=== PATIENT | male | born 1985 | race Caucasian/White ===

== ENCOUNTER 2016-10-26 16:44 | Outpatient (RCR) | payer OTHER ==
[~2016-10-26 16:44] MED LIST: HYDR1TAB75 PO; LACT1CAP62 PO; NAPR375T2 PO; ONDA8TAB13 PO; ONDAN4ODT PO
[2016-10-26 17:03] LABS: BASOPHILS # (AUTO) 0.1 10^3/uL (0.0-0.1); BASOPHILS % (AUTO) 1 % (0-10); EOSINOPHILS # (AUTO) 0.2 10^3/uL (0.0-0.3); EOSINOPHILS % (AUTO) 2 % (0-10); LYMPHOCYTES # (AUTO) 2.2 X 10^3 (1.0-4.0); LYMPHOCYTES % (AUTO) 25 % (12-44); MEAN CORPUSCULAR HEMOGLOBIN 30 PG (25-34); MEAN CORPUSCULAR HGB CONC 36 G/DL (32-36); MEAN CORPUSCULAR VOLUME 83 FL (80-99); MONOCYTES # (AUTO) 0.8 X 10^3 (0.0-1.0); MONOCYTES % (AUTO) 9 % (0-12); NEUTROPHILS # (AUTO) 5.6 X 10^3 (1.8-7.8); NEUTROPHILS % (AUTO) 63 % (42-75); PLATELET COUNT 289 10^3/uL (130-400); RED BLOOD COUNT 5.25 10^6/uL (4.35-5.85); RED CELL DISTRIBUTION WIDTH 12.6 % (10.0-14.5)
== END 2017-01-24 | disposition home or self-care (01) ==
LOC: LAB 16:44
PROVIDERS: ATTEND Nurse Practitioner Family
DX: E29.1 Testicular hypofunction (principal)
CPT/HCPCS: 36415; 84403; 85025

== ENCOUNTER 2016-12-24 16:00 | Outpatient (CLI) | payer OTHER | END 2016-12-24 16:16 | disposition home or self-care (01) | LOC: SLEEP 16:00 | PROVIDERS: ATTEND Otolaryngology Otolaryngology/Facial Plastic Surgery | DX: G47.33 Obstructive sleep apnea (adult) (pediatric) (principal) ==

== ENCOUNTER → 2017-01-06 | Outpatient (CLI) | payer OTHER ==
[~2017-01-06] MED LIST changes: +CETI10TA20 PO; +CHON250C PO; +L.AC1CAP6 PO; +MULT-35 PO; +TEST200V22 IM
--- NOTE | 2017-01-06 17:07 | Diagnostic Imaging Report ---
CLINICAL INDICATION: Patient with chronic sinusitis. Patient has history of nasal fracture. EXAM: Axial maxillofacial CT scan performed without IV contrast with coronal reformations. COMPARISON: None. FINDINGS: PARANASAL SINUSES: FRONTAL: There is mild to moderate mucosal thickening involving the right frontal sinus/frontal recess region. ETHMOID: There is moderate mucosal thickening. MAXILLARY: There is mild peripheral mucosal thickening involving both maxillary sinuses. The bilateral infundibulum regions are obstructed. The bilateral ostiomeatal unit regions are obstructed. SPHENOID: There is mild mucosal thickening seen anteriorly. OTHER PARANASAL SINUS FINDINGS: There are large amounts of mucosal thickening involving the right nasal cavity and mild mucosal thickening involving the left nasal cavity. NASAL SEPTUM: There is roughly 3 mm of rightward nasal septal deviation. VISUALIZED TEMPORAL BONE STRUCTURES: Unremarkable. BONY STRUCTURES: Unremarkable. EXTRACRANIAL SOFT TISSUE/ ORBITS: Unremarkable. IMPRESSION: 1: Mild to moderate diffuse paranasal sinusitis. The bilateral ostiomeatal unit regions and infundibulum are obstructed. 2: There is mild rightward nasal septal deviation. Dictated by: Dictated on workstation # [id number]
== END ==
LOC: RAD 16:35
PROVIDERS: ATTEND Otolaryngology Otolaryngology/Facial Plastic Surgery
DX: J32.8 Other chronic sinusitis (principal); J34.2 Deviated nasal septum
CPT/HCPCS: 70486

== ENCOUNTER → 2017-02-03 | Outpatient (CLI) | payer OTHER ==
[~2017-02-03] MED LIST changes: -CETI10TA20 PO; -CHON250C PO; -L.AC1CAP6 PO; -MULT-35 PO; -TEST200V22 IM
[2017-02-05 07:02] LABS: PROLACTIN 4.3 ng/mL (2.1-17.7)
== END ==
LOC: LAB 16:20
PROVIDERS: ATTEND Internal Medicine
DX: E03.9 Hypothyroidism, unspecified; E29.1 Testicular hypofunction
CPT/HCPCS: 36415; 83520; 84146; 84443

== ENCOUNTER 2017-03-04 05:33 | Outpatient (CLI) | payer OTHER ==
[~2017-03-04] VITALS: Ht 177.8 cm; Wt 86.2 kg
[2017-03-04] MEDS ORDERED: L.AC1CAP6 PO (12:16)
[2017-03-04] MEDS ORDERED: TEST200V22 IM (12:16)
[2017-03-04] MEDS ORDERED: CHON250C PO (12:16)
[2017-03-04] MEDS ORDERED: MULT-35 PO (12:16)
[2017-03-04] MEDS ORDERED: CETI10TA20 PO (12:16)
== END 2017-03-04 12:26 ==
LOC: PREOP 05:33
PROVIDERS: ATTEND Otolaryngology Otolaryngology/Facial Plastic Surgery
DX: Z01.818 Encounter for other preprocedural examination (principal); J32.9 Chronic sinusitis, unspecified; J34.2 Deviated nasal septum; J34.3 Hypertrophy of nasal turbinates

== ENCOUNTER → 2017-05-28 | Outpatient (CLI) | payer OTHER ==
[~2017-05-28] MED LIST changes: +CETI10TA20 PO; +CHON250C PO; +L.AC1CAP6 PO; +MULT-35 PO; +TEST200V22 IM
== END ==
LOC: LAB 14:32
PROVIDERS: ATTEND Nurse Practitioner Family
DX: J06.9 Acute upper respiratory infection, unspecified (principal); R53.81 Other malaise
CPT/HCPCS: 87804

== ENCOUNTER 2017-06-06 10:40 | Day surgery (SDC) | payer OTHER ==
[~2017-06-06] VITALS: Ht 177.8 cm; Wt 86.8 kg
--- OUTSIDE RECORDS SUMMARY | 2017-06-06 10:46 | XMS REPORT | Continuity of Care Document ---
Author Author [facility] Organization [facility] Address Unknown Phone Unavailable Allergies Active Description Code Type Severity Reaction Onset Reported/Identified Relationship to Patient Clinical Status Yes azithromycin [id number] Drug Allergy Unknown N/A 03/04/2017 Medications There is no data. Problems Date Dx Coded Attending Type Code Diagnosis Diagnosed By 05/05/2012 Ot 276.51 05/05/2012 Ot 787.01 05/05/2012 Ot 787.91 03/21/2013 EARLENE JOHN CRESPO Ot 717.7 03/21/2013 EARLENE JOHN Myers Ot 727.83 07/26/2014 Ot 729.5 04/02/2015 Ot 719.47 04/02/2015 Ot E000.8 04/02/2015 Ot E849.0 04/02/2015 Ot E917.9 04/02/2015 EARLENE DO, JOHN Myers Ot 719.46 04/02/2015 EARLENE DO, JOHN Myers Ot E000.8 04/02/2015 EARLENE DO, JOHN Myers Ot E849.0 04/02/2015 EARLENE DO, JOHN Myers Ot E888.9 04/02/2015 EARLENE DO, JOHN Myers Ot 722.92 04/02/2015 EARLENE DO, JOHN Myers Ot 722.93 04/02/2015 EARLENE DO, JOHN Myers Ot 727.83 04/02/2015 EARLENE DO, JOHN Myers Ot V72.84 04/02/2015 Ot 729.5 04/02/2015 UBALDO SANTIAGO APRN Ot E25.9 04/02/2015 JAMES LEWIS Ot R11.2 04/02/2015 JAMES LEWIS Ot R19.7 05/17/2015 UBALDO SANTIAGO APRN Ot E25.9 06/19/2015 UBALDO SANTIAGO APRN Ot E25.9 06/21/2015 UBALDO SANTIAGO APRN Ot E25.9 06/27/2015 UBALDO SANTIAGO APRN Ot E25.9 08/11/2015 UBALDO SANTIAGO EVICTION SPECIALIST Ot E25.9 ADRENOGENITAL DISORDER, UNSPECIFIED 09/29/2015 UBALDO SANTIAGO EVICTION SPECIALIST Ot E25.9 ADRENOGENITAL DISORDER, UNSPECIFIED 09/29/2015 UBALDO SANTIAGO EVICTION SPECIALIST Ot E25.9 ADRENOGENITAL DISORDER, UNSPECIFIED 09/29/2015 UBALDO SANTIAGO EVICTION SPECIALIST Ot E25.9 ADRENOGENITAL DISORDER, UNSPECIFIED 09/29/2015 UBALDO SANTIAGO EVICTION SPECIALIST Ot E25.9 ADRENOGENITAL DISORDER, UNSPECIFIED 10/21/2015 GLORIA BRAND EVICTION SPECIALIST Ot 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 HYPOFUNCTION 10/21/2015 GLORIA BRAND EVICTION SPECIALIST Ot I10 ESSENTIAL (PRIMARY) HYPERTENSION 12/19/2015 UBALDO SANTIAGO EVICTION SPECIALIST Ot E25.9 ADRENOGENITAL DISORDER, UNSPECIFIED 12/19/2015 UBALDO SANTIAGO EVICTION SPECIALIST Ot E25.9 ADRENOGENITAL DISORDER, UNSPECIFIED 12/19/2015 GLORIA BRAND EVICTION SPECIALIST Ot 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 HYPOFUNCTION 12/19/2015 GLORIA BRAND EVICTION SPECIALIST Ot I10 ESSENTIAL (PRIMARY) HYPERTENSION 12/20/2015 UBALDO SANTIAGO EVICTION SPECIALIST Ot E25.9 ADRENOGENITAL DISORDER, UNSPECIFIED 12/20/2015 UBALDO SANTIAGO EVICTION SPECIALIST Ot E25.9 ADRENOGENITAL DISORDER, UNSPECIFIED 12/20/2015 GLORIA BRAND EVICTION SPECIALIST Ot 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 HYPOFUNCTION 12/20/2015 GLORIA BRAND EVICTION SPECIALIST Ot I10 ESSENTIAL (PRIMARY) HYPERTENSION 01/07/2016 GLORIA BRAND EVICTION SPECIALIST Ot 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 HYPOFUNCTION 01/07/2016 GLORIA BRAND EVICTION SPECIALIST Ot Z79.899 OTHER LAPPING MACHINE SET UP OPERATOR (CURRENT) DRUG THERAPY 01/07/2016 GLORIA BRAND EVICTION SPECIALIST Ot 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 HYPOFUNCTION 01/07/2016 GLORIA BRAND EVICTION SPECIALIST Ot Z79.899 OTHER SENIOR LIVING (CURRENT) DRUG THERAPY 02/03/2016 UBALDO SANTIAGO EVICTION SPECIALIST Ot E25.9 ADRENOGENITAL DISORDER, UNSPECIFIED 02/03/2016 UBALDO SANTIAGO EVICTION SPECIALIST Ot E25.9 ADRENOGENITAL DISORDER, UNSPECIFIED 02/03/2016 GLORIA BRAND EVICTION SPECIALIST Ot 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 HYPOFUNCTION 02/03/2016 GLORIA BRAND EVICTION SPECIALIST Ot I10 ESSENTIAL (PRIMARY) HYPERTENSION 02/03/2016 GLORIA BRAND EVICTION SPECIALIST Ot 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 HYPOFUNCTION 02/03/2016 GLORIA BRAND EVICTION SPECIALIST Ot Z79.899 OTHER LAPPING MACHINE SET UP OPERATOR (CURRENT) DRUG THERAPY 10/19/2016 UBALDO SANTIAGO EVICTION SPECIALIST Ot E25.9 ADRENOGENITAL DISORDER, UNSPECIFIED 10/19/2016 UBALDO SANTIAGO EVICTION SPECIALIST Ot E25.9 ADRENOGENITAL DISORDER, UNSPECIFIED 10/19/2016 GLORIA BRAND EVICTION SPECIALIST Ot 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 HYPOFUNCTION 10/19/2016 GLORIA BRAND EVICTION SPECIALIST Ot I10 ESSENTIAL (PRIMARY) HYPERTENSION 10/19/2016 GLORIA BRAND EVICTION SPECIALIST Ot 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 HYPOFUNCTION 10/19/2016 GLORIA BRAND EVICTION SPECIALIST Ot Z79.899 OTHER LAPPING MACHINE SET UP OPERATOR (CURRENT) DRUG THERAPY 10/26/2016 UBALDO SANTIAGO EVICTION SPECIALIST Ot E25.9 ADRENOGENITAL DISORDER, UNSPECIFIED 10/26/2016 UBALDO SANTIAGO EVICTION SPECIALIST Ot E25.9 ADRENOGENITAL DISORDER, UNSPECIFIED 10/26/2016 GLORIA BRAND EVICTION SPECIALIST Ot 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 HYPOFUNCTION 10/26/2016 GLORIA BRAND EVICTION SPECIALIST Ot I10 ESSENTIAL (PRIMARY) HYPERTENSION 10/26/2016 GLORIA BRAND EVICTION SPECIALIST Ot 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 HYPOFUNCTION 10/26/2016 GLORIA BRAND EVICTION SPECIALIST Ot Z79.899 OTHER SENIOR LIVING (CURRENT) DRUG THERAPY 10/28/2016 GLORIA BRAND EVICTION SPECIALIST Ot 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 HYPOFUNCTION 12/13/2016 UBALDO SANTIAGO EVICTION SPECIALIST Ot E25.9 ADRENOGENITAL DISORDER, UNSPECIFIED 12/13/2016 UBALDO SANTIAGO EVICTION SPECIALIST Ot E25.9 ADRENOGENITAL DISORDER, UNSPECIFIED 12/13/2016 GLORIA BRAND EVICTION SPECIALIST Ot 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 HYPOFUNCTION 12/13/2016 GLORIA BRAND EVICTION SPECIALIST Ot I10 ESSENTIAL (PRIMARY) HYPERTENSION 12/13/2016 GLORIA BRAND EVICTION SPECIALIST Ot 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 HYPOFUNCTION 12/13/2016 GLORIA BRAND EVICTION SPECIALIST Ot Z79.899 OTHER LAPPING MACHINE SET UP OPERATOR (CURRENT) DRUG THERAPY 12/13/2016 GLORIA BRAND APRN Ot 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 HYPOFUNCTION 12/24/2016 STEPHEN GOODMAN MD Ot G47.33 OBSTRUCTIVE SLEEP APNEA (ADULT) (PEDIATR 01/07/2017 STEPHEN GOODMAN MD Ot J32.8 OTHER CHRONIC SINUSITIS 01/07/2017 STEPHEN GOODMAN MD Ot 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 01/24/2017 GLORIA BRAND EVICTION SPECIALIST Ot 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 HYPOFUNCTION 02/02/2017 STEPHEN GOODMAN MD Ot J32.8 OTHER CHRONIC SINUSITIS 02/02/2017 STEPHEN GOODMAN MD Ot 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 02/04/2017 JAMES UMAÑA MD Ot E03.9 HYPOTHYROIDISM, UNSPECIFIED 02/04/2017 JAMES UMAÑA MD Ot 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 HYPOFUNCTION 03/04/2017 STEPHEN GOODMAN MD Ot J32.9 CHRONIC SINUSITIS, UNSPECIFIED 03/04/2017 STEPHEN GOODMAN MD Ot 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 03/04/2017 STEPHEN GOODMAN MD Ot J34.3 HYPERTROPHY OF NASAL TURBINATES 03/04/2017 STEPHEN GOODMAN MD Ot Z01.818 ENCOUNTER FOR OTHER PREPROCEDURAL EXAMIN 03/04/2017 STEPHEN GOODMAN MD Ot J32.9 CHRONIC SINUSITIS, UNSPECIFIED 03/04/2017 STEPHEN GOODMAN MD Ot 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 03/04/2017 STEPHEN GOODMAN MD Ot J34.3 HYPERTROPHY OF NASAL TURBINATES 03/04/2017 STEPHEN GOODMAN MD Ot Z01.818 ENCOUNTER FOR OTHER PREPROCEDURAL EXAMIN 03/04/2017 UBALDO SANTIAGO EVICTION SPECIALIST Ot E25.9 ADRENOGENITAL DISORDER, UNSPECIFIED 03/04/2017 UBALDO SANTIAGO EVICTION SPECIALIST Ot E25.9 ADRENOGENITAL DISORDER, UNSPECIFIED 03/04/2017 GLORIA BRAND EVICTION SPECIALIST Ot 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 HYPOFUNCTION 03/11/2017 UBALDO SANTIAGO EVICTION SPECIALIST Ot E25.9 ADRENOGENITAL DISORDER, UNSPECIFIED 03/11/2017 UBALDO SANTIAGO EVICTION SPECIALIST Ot E25.9 ADRENOGENITAL DISORDER, UNSPECIFIED 03/11/2017 GLORIA BRAND EVICTION SPECIALIST Ot 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 HYPOFUNCTION 03/11/2017 GLORIA BRAND EVICTION SPECIALIST Ot I10 ESSENTIAL (PRIMARY) HYPERTENSION 03/11/2017 GLORIA BRAND APRN Ot 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 HYPOFUNCTION 03/11/2017 GLORIA BRAND EVICTION SPECIALIST Ot Z79.899 OTHER SENIOR LIVING (CURRENT) DRUG THERAPY 03/11/2017 STEPHEN GOODMAN MD Ot J32.8 OTHER CHRONIC SINUSITIS 03/11/2017 STEPHEN GOODMAN MD Ot 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 03/11/2017 GLORIA BRAND EVICTION SPECIALIST Ot 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 HYPOFUNCTION 03/11/2017 JAMES UMAÑA MD Ot E03.9 HYPOTHYROIDISM, UNSPECIFIED 03/11/2017 JAMES UMAÑA MD Ot 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 HYPOFUNCTION 03/11/2017 STEPHEN GOODMAN MD Ot F41.9 ANXIETY DISORDER, UNSPECIFIED 03/11/2017 STEPHEN GOODMAN MD Ot J32.0 CHRONIC MAXILLARY SINUSITIS 03/11/2017 STEPHEN GOODMAN MD Ot J32.1 CHRONIC FRONTAL SINUSITIS 03/11/2017 STEPHEN GOODMAN MD Ot J32.2 CHRONIC ETHMOIDAL SINUSITIS 03/11/2017 STEPHEN GOODMAN MD Ot 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 03/11/2017 STEPHEN GOODMAN MD Ot J34.3 HYPERTROPHY OF NASAL TURBINATES 03/11/2017 STEPHEN GOODMAN MD Ot K21.9 GASTRO-ESOPHAGEAL REFLUX DISEASE WITHOUT 03/11/2017 STEPHEN GOODMAN MD Ot Z79.899 OTHER SENIOR LIVING (CURRENT) DRUG THERAPY 03/11/2017 STEPHEN GOODMAN MD Ot Z87.891 PERSONAL HISTORY OF NICOTINE DEPENDENCE 03/24/2017 STEPHEN GOODMAN MD Ot F41.9 ANXIETY DISORDER, UNSPECIFIED 03/24/2017 STEPHEN GOODMAN MD Ot J32.0 CHRONIC MAXILLARY SINUSITIS 03/24/2017 STEPHEN GOODMAN MD Ot J32.1 CHRONIC FRONTAL SINUSITIS 03/24/2017 STEPHEN GOODMAN MD Ot J32.2 CHRONIC ETHMOIDAL SINUSITIS 03/24/2017 STEPHEN GOODMAN MD Ot 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 03/24/2017 STEPHEN GOODMAN MD Ot J34.3 HYPERTROPHY OF NASAL TURBINATES 03/24/2017 STEPHEN GOODMAN MD Ot K21.9 GASTRO-ESOPHAGEAL REFLUX DISEASE WITHOUT 03/24/2017 STEPHEN GOODMAN MD Ot Z79.899 OTHER SENIOR LIVING (CURRENT) DRUG THERAPY 03/24/2017 MAXINE CORDOVA STEPHEN Saleem Ot Z87.891 PERSONAL HISTORY OF NICOTINE DEPENDENCE 04/29/2017 UBALDO SANTIAGO APRN Ot E25.9 ADRENOGENITAL DISORDER, UNSPECIFIED 04/29/2017 UBALDO SANTIAGO APRN Ot E25.9 ADRENOGENITAL DISORDER, UNSPECIFIED 04/29/2017 GLORIA BRAND APRN Ot 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 HYPOFUNCTION 04/29/2017 GLORIA BRAND APRN Ot I10 ESSENTIAL (PRIMARY) HYPERTENSION 04/29/2017 GLORIA BRAND APRN Ot 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 HYPOFUNCTION 04/29/2017 GLORIA BRAND APRN Ot Z79.899 OTHER SENIOR LIVING (CURRENT) DRUG THERAPY 04/29/2017 STEPHEN GOODMAN MD Ot J32.8 OTHER CHRONIC SINUSITIS 04/29/2017 STEPHEN GOODMAN MD Ot 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 04/29/2017 GLORIA BRAND APRN Ot 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 HYPOFUNCTION 04/29/2017 JAMES UMAÑA MD Ot E03.9 HYPOTHYROIDISM, UNSPECIFIED 04/29/2017 JAMES UMAÑA MD Ot 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 HYPOFUNCTION 05/31/2017 GLORIA BRAND APRN Ot J06.9 ACUTE UPPER RESPIRATORY INFECTION, UNSPE 05/31/2017 GLORIA BRAND APRN Ot R53.81 OTHER MAL[facility] Procedures There is no data. Results Test Result Range Complete blood count (CBC) with automated white blood cell (WBC) differential - 01/03/16 14:42 Blood leukocytes automated count (number/volume) 7.9 10*3/uL 4.3-11.0 Blood erythrocytes automated count (number/volume) 5.38 10*6/uL 4.35-5.85 Venous blood hemoglobin measurement (mass/volume) 16.4 g/dL 13.3-17.7 Blood hematocrit (volume fraction) 45 % 40-54 Automated erythrocyte mean corpuscular volume 83 [foz_us] 80-99 Automated erythrocyte mean corpuscular hemoglobin (mass per erythrocyte) 31 pg 25-34 Automated erythrocyte mean corpuscular hemoglobin concentration measurement ( mass/volume) 37 g/dL 32-36 Automated erythrocyte distribution width ratio 12.5 % 10.0-14.5 Automated blood platelet count (count/volume) 263 10*3/uL 130-400 Automated blood platelet mean volume measurement 9.9 [foz_us] 7.4-10.4 Automated blood neutrophils/100 leukocytes 69 % 42-75 Automated blood lymphocytes/100 leukocytes 23 % 12-44 Blood monocytes/100 leukocytes 7 % 0-12 Automated blood eosinophils/100 leukocytes 1 % 0-10 Automated blood basophils/100 leukocytes 0 % 0-10 Blood neutrophils automated count (number/volume) 5.5 10*3 1.8-7.8 Blood lymphocytes automated count (number/volume) 1.8 10*3 1.0-4.0 Blood monocytes automated count (number/volume) 0.5 10*3 0.0-1.0 Automated eosinophil count 0.1 10*3/uL 0.0-0.3 Automated blood basophil count (count/volume) 0.0 10*3/uL 0.0-0.1 Serum or plasma testosterone measurement (mass/volume) - 01/03/16 14:42 Testosterone [mass or moles/volume] in serum or plasma 562 % 241-827 Complete blood count (CBC) with automated white blood cell (WBC) differential - 10/26/16 16:56 Blood leukocytes automated count (number/volume) 9.0 10*3/uL 4.3-11.0 Blood erythrocytes automated count (number/volume) 5.25 10*6/uL 4.35-5.85 Venous blood hemoglobin measurement (mass/volume) 15.6 g/dL 13.3-17.7 Blood hematocrit (volume fraction) 43 % 40-54 Automated erythrocyte mean corpuscular volume 83 [foz_us] 80-99 Automated erythrocyte mean corpuscular hemoglobin (mass per erythrocyte) 30 pg 25-34 Automated erythrocyte mean corpuscular hemoglobin concentration measurement ( mass/volume) 36 g/dL 32-36 Automated erythrocyte distribution width ratio 12.6 % 10.0-14.5 Automated blood platelet count (count/volume) 289 10*3/uL 130-400 Automated blood platelet mean volume measurement 10.0 [foz_us] 7.4-10.4 Automated blood neutrophils/100 leukocytes 63 % 42-75 Automated blood lymphocytes/100 leukocytes 25 % 12-44 Blood monocytes/100 leukocytes 9 % 0-12 Automated blood eosinophils/100 leukocytes 2 % 0-10 Automated blood basophils/100 leukocytes 1 % 0-10 Blood neutrophils automated count (number/volume) 5.6 10*3 1.8-7.8 Blood lymphocytes automated count (number/volume) 2.2 10*3 1.0-4.0 Blood monocytes automated count (number/volume) 0.8 10*3 0.0-1.0 Automated eosinophil count 0.2 10*3/uL 0.0-0.3 Automated blood basophil count (count/volume) 0.1 10*3/uL 0.0-0.1 Serum or plasma testosterone measurement (mass/volume) - 10/26/16 16:56 Testosterone [mass or moles/volume] in serum or plasma 235 % 241-827 THYROID STIMULATING HORMONE - 02/03/17 16:40 THYROID STIMULATING HORMONE 1.08 u[iU]/mL 0.35-4.94 Serum or plasma prolactin measurement (mass/volume) - 02/03/17 16:40 Serum or plasma prolactin measurement (mass/volume) 4.3 % 2.1-17.7 TSH RECEPTOR ANTIBODY - 02/03/17 16:40 TSH RECEPTOR AB <0.90 <=1.75 Complete blood count (CBC) with automated white blood cell (WBC) differential - 03/11/17 07:00 Blood leukocytes automated count (number/volume) 11.4 10*3/uL 4.3-11.0 Blood erythrocytes automated count (number/volume) 5.28 10*6/uL 4.35-5.85 Venous blood hemoglobin measurement (mass/volume) 15.9 g/dL 13.3-17.7 Blood hematocrit (volume fraction) 44 % 40-54 Automated erythrocyte mean corpuscular volume 82 [foz_us] 80-99 Automated erythrocyte mean corpuscular hemoglobin (mass per erythrocyte) 30 pg 25-34 Automated erythrocyte mean corpuscular hemoglobin concentration measurement ( mass/volume) 37 g/dL 32-36 Automated erythrocyte distribution width ratio 12.8 % 10.0-14.5 Automated blood platelet count (count/volume) 326 10*3/uL 130-400 Automated blood platelet mean volume measurement 10.1 [foz_us] 7.4-10.4 Automated blood neutrophils/100 leukocytes 69 % 42-75 Automated blood lymphocytes/100 leukocytes 23 % 12-44 Blood monocytes/100 leukocytes 7 % 0-12 Automated blood eosinophils/100 leukocytes 0 % 0-10 Automated blood basophils/100 leukocytes 0 % 0-10 Blood neutrophils automated count (number/volume) 7.8 10*3 1.8-7.8 Blood lymphocytes automated count (number/volume) 2.7 10*3 1.0-4.0 Blood monocytes automated count (number/volume) 0.8 10*3 0.0-1.0 Automated eosinophil count 0.0 10*3/uL 0.0-0.3 Automated blood basophil count (count/volume) 0.0 10*3/uL 0.0-0.1 Whole blood basic metabolic panel - 03/11/17 07:00 Serum or plasma sodium measurement (moles/volume) 139 mmol/L 135-145 Serum or plasma potassium measurement (moles/volume) 3.3 mmol/L 3.6-5.0 Serum or plasma chloride measurement (moles/volume) 105 mmol/L 98-107 Carbon dioxide 24 mmol/L 21-32 Serum or plasma anion gap determination (moles/volume) 10 mmol/L 5-14 Serum or plasma urea nitrogen measurement (mass/volume) 14 mg/dL 7-18 Serum or plasma creatinine measurement (mass/volume) 0.80 mg/dL 0.60-1.30 Serum or plasma urea nitrogen/creatinine mass ratio 18 NRG Serum or plasma creatinine measurement with calculation of estimated glomerular filtration rate > NRG Serum or plasma glucose measurement (mass/volume) 88 mg/dL 70-105 Serum or plasma calcium measurement (mass/volume) 9.0 mg/dL 8.5-10.1 Methicillin resistant Staphylococcus aureus (MRSA) screening culture - 07:00 Methicillin resistant Staphylococcus aureus (MRSA) screening culture NEG NRG Influenza virus A and B antigen detection - 05/28/17 14:44 FLU RESULT NEGATIVE FOR INFLUENZA A AND B ANTIGENS BY IA NRG Encounters ACCT No. Visit Date/Time Discharge Status Pt. Type Provider Facility Loc./Unit Complaint [id number] 05/28/2017 14:32:00 05/28/2017 23:59:59 CLS Outpatient GLORIA BRAND APRN [facility] LAB R53.8, J06.9 [id number] 03/11/2017 06:33:00 03/11/2017 13:40:00 DIS Outpatient MAXINE CORDOVASTEPHEN [facility] SDC CHRONIC SINUSITIS, DEVIATED SEPTUM, TURBINATED HYP [id number] 03/04/2017 05:33:00 03/04/2017 12:26:00 DIS Outpatient STEPHEN GOODMAN MD [facility] PREOP CHRONIC SINUSITIS [id number] 02/03/2017 16:20:00 02/03/2017 23:59:59 CLS Outpatient JAMES UMAÑA MD [facility] LAB E03.9 E29.1 [id number] 01/25/2017 00:21:00 01/25/2017 23:59:59 CLS Preadmit GLORIA BRAND APRN [facility] LAB E28.1 E29.1 [id number] 10/26/2016 16:44:00 01/24/2017 00:01:00 DIS Outpatient GLORIA BRAND APRN [facility] LAB E28.1 E29.1 [id number] 01/06/2017 16:35:00 01/06/2017 23:59:59 CLS Outpatient STEPHEN GOODMAN MD [facility] RAD CHRONIS SINUSITIS [id number] 12/24/2016 16:00:00 12/24/2016 16:16:00 DIS Outpatient STEPHEN GOODMAN MD [facility] SLEEP OBSTRUCTIVE SLEEP APNEA [id number] 01/03/2016 14:29:00 01/03/2016 23:59:59 CLS Outpatient GLORIA BRAND APRN [facility] LAB SENIOR LIVING DRUG THERAPY,TESTICULAR HYPOFUNCTION [id number] 10/19/2015 10:17:00 10/19/2015 23:59:59 CLS Outpatient GLORIA BRAND APRN [facility] LAB ROUTINE HTN E29.1 [id number] 08/12/2015 00:10:00 08/12/2015 23:59:59 CLS Preadmit UBALDO SANTIAGO APRN [facility] LAB ADRENOGENITAL DISORDER [id number] 07/04/2015 12:07:00 08/11/2015 00:01:00 DIS Outpatient UBALDO SANTIAGO APRN [facility] LAB ADRENOGENITAL DISORDER [id number] 07/15/2015 17:24:00 07/15/2015 23:59:59 CLS Outpatient REGAN DRAKE [facility] QUICK [id number] 06/28/2015 00:08:00 06/28/2015 23:59:59 CLS Preadmit UBALDO SANTIAGO APRN [facility] LAB ADRENOGENITAL DISORDER [id number] 05/02/2015 14:13:00 06/27/2015 00:01:00 DIS Outpatient UBALDO SANTIAGO EVICTION SPECIALIST [facility] LAB [id number] 04/02/2015 12:10:00 04/02/2015 15:26:00 DIS Emergency JAMES LEWIS [facility] ER [id number] 03/21/2013 11:05:00 03/21/2013 16:55:00 DIS Outpatient EARLENE CRESPO JOHN Myers [facility] SDC [id number] 03/14/2013 09:47:00 03/14/2013 23:59:59 CLS Outpatient EARLENE DO, JOHN Myers [facility] PREOP [id number] 01/10/2013 14:03:00 01/10/2013 23:59:59 CLS Outpatient EARLENE DO, JOHN Myers [facility] RAD [id number] 12/27/2012 14:02:00 12/27/2012 23:59:59 CLS Outpatient EARLENE DO, JOHN Myers [facility] RAD [id number] 07/06/2014 16:52:00 Document Registration [id number] 05/05/2012 13:47:00 Document Registration [id number] 04/14/2012 13:37:00 Document Registration
--- OUTSIDE RECORDS SUMMARY | 2017-06-06 10:46 | XMS REPORT | CCD ---
Author Author Xiomara Pacheco MD, [facility] Address [facility] [address] [place] [address] Phone Care Team Providers Care Chip Silo Tender Name Role Phone PP Unavailable CCM Unavailable Summary Purpose Interface Exchange Insurance Providers Payer name Policy type / Coverage type Covered libertarian ID Effective Begin Date Effective End Date Blue Cross [facility] Blue Cross/[facility] [id number] Unknown Unknown Family history Daughter Diagnosis Age At Onset Asthma Unknown Brother Diagnosis Age At Onset Hypertension Unknown Father Diagnosis Age At Onset Hypertension Unknown Social History Social History Element Codes Description Effective Dates Marital status Unknown osmar 08/22/2015 Number of children Unknown 1 08/22/2015 Employment Unknown 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 Quit less than 5 years ago 08/22/[address]: 985576329 Never drinks alcohol 08/22/2015 Allergies, Adverse Reactions, Alerts Allergies, Adverse Reactions, Alerts data not found Past Medical History Illness Codes Condition Status Onset Date Resolved Date Cough ICD-9: 786.2 ICD-10: R05 Active 01/05/2017 Unknown Gastro-esophageal reflux disease without esophagitis ICD-9: 530.81 ICD-10: K21.9 Active 01/05/2017 Unknown Other acute sinusitis ICD-9: 461.8 ICD-10: J01.80 Active 10/13/2015 Unknown Other allergic rhinitis ICD-9: 477.8 ICD-10: J30.89 Active 10/13/2015 Unknown 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 Active 08/21/2015 Unknown Acute laryngopharyngitis ICD-9: 465.0 ICD-10: J06.0 Active 07/16/2016 Unknown Other malaise ICD-9: 780.79 ICD-10: R53.81 Active 07/16/2016 Unknown Dizziness and giddiness ICD-9: 780.4 ICD-10: R42 Active 10/13/2015 Unknown Encounter for general adult medical examination without abnormal findings ICD-9: V70.0 ICD-10: Z00.00 Active 08/21/2015 Unknown Problems Condition Codes Effective Dates Condition Status Cough ICD-9: 786.2 ICD-10: R05 01/05/2017 Active Gastro-esophageal reflux disease without esophagitis ICD-9: 530.81 ICD-10: K21.9 01/05/2017 Active Other acute sinusitis ICD-9: 461.8 ICD-10: J01.80 10/13/2015 Active Other allergic rhinitis ICD-9: 477.8 ICD-10: J30.89 10/13/2015 Active 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 08/21/2015 Active Acute laryngopharyngitis ICD-9: 465.0 ICD-10: J06.0 07/16/2016 Active Other malaise ICD-9: 780.79 ICD-10: R53.81 07/16/2016 Active Dizziness and giddiness ICD-9: 780.4 ICD-10: R42 10/13/2015 Active Encounter for general adult medical examination without abnormal findings ICD-9: V70.0 ICD-10: Z00.00 08/21/2015 Active Medications Medication Codes Instructions Start Date Stop Date Status Fill Instructions amoxicillin 500 mg capsule RxNorm: 484607 1 Capsule(s) PO TID 05/28/2017 06/03/2017 Active testosterone cypionate 200 mg/mL intramuscular oil RxNorm: 201276 1 Milliliter(s) IM every 14 days 04/13/2017 10/08/2017 Active prednisone 10 mg tablet RxNorm: 655298 Tablet(s) PO UD 2016 No Stop Date Active 6,5,4,3,2,1 omeprazole 20 mg capsule,delayed release RxNorm: 653719 1 Capsule(s) PO daily 01/05/2017 01/18/2017 Inactive Tessalon Perles 100 mg capsule RxNorm: 672091 1-2 Capsule(s) PO TID as needed 01/05/2017 01/09/2017 Inactive levothyroxine 25 mcg tablet RxNorm: 525422 1 Tablet(s) PO daily 12/25/2016 01/02/2017 Inactive levothyroxine 25 mcg tablet RxNorm: 521509 1 Tablet(s) PO daily 12/25/2016 12/24/2016 Inactive Zofran 4 mg tablet RxNorm: 284908 1 Tablet(s) PO TID as needed 12/24/2016 12/28/2016 Inactive Kenalog 40 mg/mL suspension for injection RxNorm: 3978097 1 Milliliter(s) Inj 12/22/2016 12/22/2016 Inactive ceftriaxone 500 mg solution for injection RxNorm: 3351519 1 Milliliter(s) Inj 12/22/2016 12/22/2016 Inactive Augmentin 875 mg-125 mg tablet RxNorm: 971452 1 Tablet(s) PO BID started by urgent care 12/20/2016 12/29/2016 Inactive prednisone 20 mg tablet RxNorm: 039824 1 Tablet(s) PO daily started by urgent care 12/20/2016 12/24/2016 Inactive testosterone cypionate 200 mg/mL intramuscular oil RxNorm: 622233 1 Milliliter(s) IM every 14 days 09/01/2016 08/21/2017 Active Zofran 4 mg tablet RxNorm: 043606 1 Tablet(s) PO TID as needed 07/16/2016 07/20/2016 Inactive amoxicillin 875 mg tablet RxNorm: 315462 1 Tablet(s) PO BID 07/25/2016 Inactive testosterone cypionate 200 mg/mL intramuscular oil RxNorm: 029581 1 Milliliter(s) IM every 14 days 10/29/2015 10/21/2016 Inactive testosterone cypionate 200 mg/mL intramuscular oil RxNorm: 821640 1 Milliliter(s) IM every 14 days 10/24/2015 10/28/2015 Inactive no need to send needles prednisone 20 mg tablet RxNorm: 885099 2 Tablet(s) PO daily 10/18/2015 Inactive amoxicillin 500 mg capsule RxNorm: 249636 1 Capsule(s) PO TID 10/14/2015 10/23/2015 Inactive Kenalog 40 mg/mL suspension for injection RxNorm: 2650523 1 Milliliter(s) Inj 10/14/2015 10/14/2015 Inactive naproxen 250 mg tablet RxNorm: 621816 1 Tablet(s) PO daily No Start Date Active Multivitamin & Mineral Formula tablet RxNorm: 1 Tablet(s) PO daily No Start Date Active testosterone cypionate 200 mg/mL intramuscular oil RxNorm: 693372 Milliliter(s) IM No Start Date 10/23/2015 Inactive Medication Administered Medication Codes Instructions Start Date Status Kenalog 40 mg/mL suspension for injection RxNorm: 7049882 1Milliliter 12/22/2016 No longer Active ceftriaxone 500 mg solution for injection RxNorm: 7492961 1Milliliter 12/22/2016 No longer Active Kenalog 40 mg/mL suspension for injection RxNorm: 9615475 1Milliliter 10/14/2015 No longer Active Immunizations No Immunization data Assessments Condition Codes Effective Dates Gastro-esophageal reflux disease without esophagitis ICD-10 : K21.9 ICD-9: 530.81 01/05/2017 Other allergic rhinitis ICD-10: J30.89 ICD-9: 477.8 01/05/2017 Cough ICD-10: R05 ICD-9: 786.2 01/05/2017 Other acute recurrent sinusitis ICD-10: J01.81 ICD-9: 461.9 01/05/2017 Other acute sinusitis ICD-10: J01.80 ICD-9: 461.8 12/22/2016 Testicular hypofunction ICD-10: E29.1 ICD-9: 257.2 12/22/2016 Other malaise ICD-10: R53.81 ICD-9: 780.79 07/16/2016 Acute laryngopharyngitis ICD-10: J06.0 ICD-9: 465.0 07/16/2016 Dizziness and giddiness ICD-10: R42 ICD-9: 780.4 10/14/2015 Encounter for general adult medical examination without abnormal findings ICD-10: Z00.00 ICD-9: V70.0 08/22/2015 Reason For Visit Reason For Visit Effective Dates Notes sinus congestion 01/05/2017 sinus congestion 12/22/2016 sinus congestion 07/16/2016 sinus congestion 10/14/2015 well man exam (18-39 years) 08/22/2015 Results Observation Observation Code Item Item Code Result Date Cbc With Differential Ord2 WBC 12.78 K/ul 12/22/2016 Cbc With Differential Ord2 RBC 5.35 M/ul 12/22/2016 Cbc With Differential Ord2 HGB 16.2 g/dl 12/22/2016 Cbc With Differential Ord2 HCT 45.4 % 12/22/2016 Cbc With Differential Ord2 Neut% 75.3 % 12/22/2016 Cbc With Differential Ord2 MCV 84.9 fl 12/22/2016 Cbc With Differential Ord2 Lymph% 16.4 % 12/22/2016 Cbc With Differential Ord2 MCH 30.3 pg 12/22/2016 Cbc With Differential Ord2 [place]% 7.6 % 12/22/2016 Cbc With Differential Ord2 MCHC 35.7 pg 12/22/2016 Cbc With Differential Ord2 Eos% 0.5 % 12/22/2016 Cbc With Differential Ord2 PLT 313 K/ul 12/22/2016 Cbc With Differential Ord2 Baso% 0.2 % 12/22/2016 Cbc With Differential Ord2 RDW 13.2 % 12/22/2016 Cbc With Differential Ord2 Neut ABS# 9.62 K/ul 12/22/2016 Cbc With Differential Ord2 Lymph ABS# 2.09 K/ul 12/22/2016 Cbc With Differential Ord2 [place] ABS# 1.0 K/ul 12/22/2016 Cbc With Differential Ord2 Eos ABS# 0.1 K/ul 12/22/2016 Cbc With Differential Ord2 Baso ABS# 0.0 K/ul 12/22/2016 Free T4 Urq416 FREE T4 0.76 ng/dL 12/22/2016 Tsh Ord6 hTSH II 5.86 uIU/mL 12/22/2016 Comp Metabolic Xpf280 NA 142 mEq/L 12/22/2016 Comp Metabolic Lep892 K 4.1 mEq/L 12/22/2016 Comp Metabolic Yda749 CL 103 mEq/L 12/22/2016 Comp Metabolic Xvn573 CO2 27.0 mEq/L 12/22/2016 Comp Metabolic Xhe569 ANION GAP 16 12/22/2016 Comp Metabolic Ewa257 GLUCOSE 82 mg/dL 12/22/2016 Comp Metabolic Cfw962 Creat 0.8 mg/dL 12/22/2016 Comp Metabolic Oqi417 eGFR 117 ml/min/1.73m2 12/22/2016 Comp Metabolic Ixc209 BUN 16 mg/dL 12/22/2016 Comp Metabolic Yow062 B/C Ratio 19.8 Ratio 12/22/2016 Comp Metabolic Vge951 CALCIUM 9.2 mg/dL 12/22/2016 Comp Metabolic Xkz093 ALK PHOS 64 U/L 12/22/2016 Comp Metabolic Kct832 AST(SGOT) 13 U/L 12/22/2016 Comp Metabolic Ocs397 ALT(SGPT) 18 U/L 12/22/2016 Comp Metabolic Wgh082 BILI T 0.3 mg/dL 12/22/2016 Comp Metabolic Zco044 ALBUMIN 4.4 g/dL 12/22/2016 Comp Metabolic Vjc447 TPRO 7.1 g/dL 12/22/2016 Comp Metabolic Kyd214 GLOB 2.7 g/dL 12/22/2016 Comp Metabolic Usp772 A/G Ratio 1.6 Ratio 12/22/2016 Comp Metabolic Yby337 Osmo 283 mOsmo 12/22/2016 Lipid Ord30 CHOL 171 mg/dL 12/22/2016 Lipid Ord30 HDL 38.0 mg/dl 12/22/2016 Lipid Ord30 TRIG 141 mg/dL 12/22/2016 Lipid Ord30 LDL 105 mg/dL 12/22/2016 Lipid Ord30 C/HDL 4.5 Ratio 12/22/2016 Testosterone Cxi114 Testo 258.7 ng/dL 12/22/2016 C RAP A SC 8103333 Strep A Negative 12/22/2016 C A/B FLU 8484830 Influenza A Scr Negative 07/17/2016 C A/B FLU 3290878 Influenza B Scr Negative 07/17/2016 Review of Systems System Result Effective Dates Constitutional recent illness 01/05/2017 Constitutional No chills 01/05/2017 Constitutional No diaphoresis 01/05/2017 Constitutional fever 01/05/2017 Constitutional malaise 01/05/2017 Eyes No eye erythema 01/05/2017 Ears/Nose/Throat/Neck nasal allergies 08/2016 Ears/Nose/Throat/Neck nasal discharge 08/2016 Ears/Nose/Throat/Neck postnasal drip 08/2016 Ears/Nose/Throat/Neck sinus congestion Cardiovascular No chest pain/pressure 08/2016 Cardiovascular No dyspnea 01/05/2017 Respiratory chest congestion 01/05/2017 Respiratory cough 01/05/2017 Respiratory No dyspnea 01/05/2017 Gastrointestinal No abdominal pain 2016 Gastrointestinal No constipation 2016 Gastrointestinal No diarrhea 01/05/2017 Gastrointestinal No nausea 01/05/2017 Gastrointestinal No vomiting 01/05/2017 Dermatologic No rash 01/05/2017 Neurologic No alteration of consciousness 01/05/2017 Neurologic No mental status change 2016 Constitutional recent illness 12/22/2016 Constitutional chills 12/22/2016 Constitutional No diaphoresis 12/22/2016 Constitutional fever 12/22/2016 Eyes No eye erythema 12/22/2016 Ears/Nose/Throat/Neck nasal allergies Ears/Nose/Throat/Neck nasal discharge Ears/Nose/Throat/Neck postnasal drip Ears/Nose/Throat/Neck sinus congestion Ears/Nose/Throat/Neck sore throat 2016 Cardiovascular No chest pain/pressure Cardiovascular No dyspnea 12/22/2016 Respiratory No chest congestion 2016 Respiratory cough 12/22/2016 Respiratory No dyspnea 12/22/2016 Gastrointestinal No abdominal pain 2016 Gastrointestinal No constipation 2016 Gastrointestinal No diarrhea 12/22/2016 Gastrointestinal No nausea 12/22/2016 Gastrointestinal No vomiting 12/22/2016 Dermatologic No rash 12/22/2016 Neurologic No alteration of consciousness 12/22/2016 Neurologic No mental status change 2016 Constitutional malaise 12/22/2016 Constitutional recent illness 07/16/2016 Constitutional chills 07/16/2016 Constitutional No diaphoresis 07/16/2016 Constitutional fever 07/16/2016 Eyes No eye erythema 07/16/2016 Ears/Nose/Throat/Neck nasal allergies Ears/Nose/Throat/Neck nasal discharge Ears/Nose/Throat/Neck postnasal drip Ears/Nose/Throat/Neck No sinus congestion 07/16/2016 Ears/Nose/Throat/Neck sore throat 2016 Cardiovascular No chest pain/pressure Cardiovascular No dyspnea 07/16/2016 Respiratory cough 07/16/2016 Respiratory No dyspnea 07/16/2016 Gastrointestinal No constipation 2016 Gastrointestinal No diarrhea 07/16/2016 Gastrointestinal No nausea 07/16/2016 Gastrointestinal No vomiting 07/16/2016 Dermatologic No rash 07/16/2016 Neurologic No alteration of consciousness 07/16/2016 Neurologic No mental status change 2016 Ears/Nose/Throat/Neck No otalgia 2016 Constitutional No chills 10/14/2015 Constitutional No diaphoresis 10/14/2015 Constitutional No fatigue 10/14/2015 Constitutional No insomnia 10/14/2015 Eyes No eye erythema 10/14/2015 Ears/Nose/Throat/Neck nasal allergies Ears/Nose/Throat/Neck nasal discharge Ears/Nose/Throat/Neck otalgia 10/14/2015 Ears/Nose/Throat/Neck sinus congestion Cardiovascular No chest pain/pressure Cardiovascular No dyspnea 10/14/2015 Respiratory No chest congestion 2015 Respiratory cough 10/14/2015 Gastrointestinal No abdominal pain 2015 Gastrointestinal No constipation 2015 Gastrointestinal No diarrhea 10/14/2015 Gastrointestinal No nausea 10/14/2015 Gastrointestinal No vomiting 10/14/2015 Musculoskeletal No joint complaint 2015 Dermatologic No rash 10/14/2015 Neurologic No alteration of consciousness 10/14/2015 Neurologic No mental status change 2015 Ears/Nose/Throat/Neck postnasal drip Neurologic dizziness 10/14/2015 Constitutional No night sweats 2015 Constitutional No chills 08/22/2015 Constitutional No diaphoresis 08/22/2015 Constitutional No fatigue 08/22/2015 Constitutional No fever 08/22/2015 Constitutional No insomnia 08/22/2015 Eyes No eye erythema 08/22/2015 Ears/Nose/Throat/Neck No nasal allergies 08/22/2015 Ears/Nose/Throat/Neck No nasal discharge 08/22/2015 Ears/Nose/Throat/Neck No otalgia 2015 Ears/Nose/Throat/Neck No sinus congestion 08/22/2015 Cardiovascular No chest pain/pressure Cardiovascular No dyspnea 08/22/2015 Respiratory No productive sputum 2015 Respiratory No chest congestion 2015 Respiratory No cough 08/22/2015 Gastrointestinal No abdominal pain 2015 Gastrointestinal No constipation 2015 Gastrointestinal No diarrhea 08/22/2015 Gastrointestinal No vomiting 08/22/2015 Gastrointestinal No nausea 08/22/2015 Genitourinary/Nephrology No dysuria 08/21 Musculoskeletal No joint complaint 2015 Dermatologic No rash 08/22/2015 Neurologic No alteration of consciousness 08/22/2015 Neurologic No mental status change 2015 Physical Exam Exam Name System Name Item Name Status Result Effective Dates Notes Full Exam - ENT Constitutional general appearance Overall: well nourished 01/05/2017 None Full Exam - ENT Constitutional general appearance Overall: well developed 01/05/2017 None Full Exam - ENT Constitutional general appearance Overall: in no acute distress 01/05/2017 None Full Exam - ENT Ears/Nose/Throat otoscopic exam Overall: external auditory canals normal 01/05/2017 None Full Exam - ENT Ears/Nose/Throat otoscopic exam Left tympanic membrane: air -fluid level 01/05/2017 None Full Exam - ENT Ears/Nose/Throat otoscopic exam Right tympanic membrane: air-fluid level 01/05/2017 None Full Exam - ENT Ears/Nose/Throat nasal mucosa, septum, turbinates Drainage: clear 01/05/2017 None Full Exam - ENT Ears/Nose/Throat nasal mucosa, septum, turbinates Drainage: yellow 01/05/2017 None Full Exam - ENT Ears/Nose/Throat lips/ teeth/gingiva Overall: benign lips 01/05/2017 None Full Exam - ENT Ears/Nose/Throat oropharynx Posterior Pharynx: clear post nasal drainage 01/05/2017 None Full Exam - ENT Face and Head palpation Left maxillary sinus: tender 01/05/2017 None Full Exam - ENT Face and Head palpation Right maxillary sinus: tender 01/05/2017 None Full Exam - ENT Respiratory inspection Overall: no retractions 01/05/2017 None Full Exam - ENT Respiratory inspection Overall: normal rate 08/2016 None Full Exam - ENT Respiratory auscultation Diffuse: diminished None Full Exam - ENT Cardiovascular auscultation of heart Overall: regular rate 01/05/2017 None Full Exam - ENT Cardiovascular auscultation of heart Overall: normal heart sounds 01/05/2017 None Full Exam - ENT Lymphatic palpation of lymph nodes Overall: anterior cervical chain benign 01/05/2017 None Full Exam - ENT Lymphatic palpation of lymph nodes Overall: posterior cervical chain benign 01/05/2017 None Full Exam - ENT Neurologic mood and affect Overall: normal mood 01/05/2017 None Full Exam - ENT Neurologic mood and affect Overall: normal affect 01/05/2017 None Full Exam - ENT Neurologic orientation Overall: oriented to person, place and time 01/05/2017 None Full Exam - ENT Respiratory auscultation Right lower lung field: expiratory wheezes 01/05/2017 faint Full Exam - ENT Constitutional general appearance Overall: well nourished 12/22/2016 None Full Exam - ENT Constitutional general appearance Overall: well developed 12/22/2016 None Full Exam - ENT Constitutional general appearance Overall: in no acute distress 12/22/2016 None Full Exam - ENT Ears/Nose/Throat otoscopic exam Overall: external auditory canals normal 12/22/2016 None Full Exam - ENT Ears/Nose/Throat otoscopic exam Left tympanic membrane: air -fluid level 12/22/2016 None Full Exam - ENT Ears/Nose/Throat otoscopic exam Right tympanic membrane: air-fluid level 12/22/2016 None Full Exam - ENT Ears/Nose/Throat nasal mucosa, septum, turbinates Drainage: clear 12/22/2016 None Full Exam - ENT Ears/Nose/Throat nasal mucosa, septum, turbinates Drainage: yellow 12/22/2016 None Full Exam - ENT Ears/Nose/Throat lips/ teeth/gingiva Overall: benign lips 12/22/2016 None Full Exam - ENT Ears/Nose/Throat oropharynx Posterior Pharynx: clear post nasal drainage 12/22/2016 None Full Exam - ENT Face and Head palpation Left maxillary sinus: tender 12/22/2016 None Full Exam - ENT Face and Head palpation Right maxillary sinus: tender 12/22/2016 None Full Exam - ENT Respiratory inspection Overall: no retractions 12/22/2016 None Full Exam - ENT Respiratory inspection Overall: normal rate None Full Exam - ENT Respiratory auscultation Overall: breath sounds clear bilaterally 12/22/2016 None Full Exam - ENT Cardiovascular auscultation of heart Overall: regular rate 12/22/2016 None Full Exam - ENT Cardiovascular auscultation of heart Overall: normal heart sounds 12/22/2016 None Full Exam - ENT Lymphatic palpation of lymph nodes Overall: anterior cervical chain benign 12/22/2016 None Full Exam - ENT Lymphatic palpation of lymph nodes Overall: posterior cervical chain benign 12/22/2016 None Full Exam - ENT Neurologic mood and affect Overall: normal mood 12/22/2016 None Full Exam - ENT Neurologic mood and affect Overall: normal affect 12/22/2016 None Full Exam - ENT Neurologic orientation Overall: oriented to person, place and time 12/22/2016 None Full Exam - ENT Respiratory auscultation Diffuse: diminished None Full Exam - ENT Constitutional general appearance Overall: well nourished 07/16/2016 None Full Exam - ENT Constitutional general appearance Overall: well developed 07/16/2016 None Full Exam - ENT Constitutional general appearance Overall: in no acute distress 07/16/2016 None Full Exam - ENT Ears/Nose/Throat otoscopic exam Overall: external auditory canals normal 07/16/2016 None Full Exam - ENT Ears/Nose/Throat otoscopic exam Left tympanic membrane: air -fluid level 07/16/2016 None Full Exam - ENT Ears/Nose/Throat otoscopic exam Right tympanic membrane: air-fluid level 07/16/2016 None Full Exam - ENT Ears/Nose/Throat lips/ teeth/gingiva Overall: benign lips 07/16/2016 None Full Exam - ENT Ears/Nose/Throat oropharynx Overall: oral mucosa clear 07/16/2016 None Full Exam - ENT Ears/Nose/Throat oropharynx Posterior Pharynx: clear post nasal drainage 07/16/2016 None Full Exam - ENT Ears/Nose/Throat oropharynx Posterior Pharynx: erythema 07/16/2016 None Full Exam - ENT Respiratory inspection Overall: no retractions 07/16/2016 None Full Exam - ENT Respiratory inspection Overall: normal rate None Full Exam - ENT Respiratory auscultation Overall: breath sounds clear bilaterally 07/16/2016 None Full Exam - ENT Cardiovascular auscultation of heart Rate: normal rate 07/16/2016 None Full Exam - ENT Cardiovascular auscultation of heart Rhythm: regular rhythm 07/16/2016 None Full Exam - ENT Lymphatic palpation of lymph nodes Overall: anterior cervical chain benign 07/16/2016 None Full Exam - ENT Lymphatic palpation of lymph nodes Overall: posterior cervical chain benign 07/16/2016 None Full Exam - ENT Neurologic mood and affect Overall: normal mood 07/16/2016 None Full Exam - ENT Neurologic mood and affect Overall: normal affect 07/16/2016 None Full Exam - ENT Neurologic orientation Overall: oriented to person, place and time 07/16/2016 None Full Exam - General 1994 Constitutional general appearance Overall: well developed 10/14/2015 None Full Exam - General 1994 Constitutional general appearance Overall: in no acute distress 10/14/2015 None Full Exam - General 1994 Constitutional general appearance Overall: well nourished 10/14/2015 None Full Exam - General 1994 Eyes conjunctiva /eyelids Overall: conjunctiva clear 10/14/2015 None Full Exam - General 1994 Eyes conjunctiva /eyelids Overall: cornea clear 10/14/2015 None Full Exam - General 1994 Eyes conjunctiva /eyelids Overall: eyelids normal 10/14/2015 None Full Exam - General 1994 Ears/Nose/Throat otoscopic exam Overall: external auditory canals clear 10/14/2015 None Full Exam - General 1994 Ears/Nose/Throat lips/teeth/gingiva Overall: benign lips 10/14/2015 None Full Exam - General 1994 Ears/Nose/Throat lips/teeth/gingiva Overall: normal dentition 10/14/2015 None Full Exam - General 1994 Ears/Nose/Throat oral cavity/pharynx/larynx Overall: oral mucosa clear 10/14/2015 None Full Exam - General 1994 Respiratory auscultation Overall: breath sounds clear bilaterally 10/14/2015 None Full Exam - General 1994 Respiratory respiratory effort/rhythm Overall: no retractions 10/14/2015 None Full Exam - General 1994 Respiratory respiratory effort/rhythm Overall: normal rate 10/14/2015 None Full Exam - General 1994 Cardiovascular extremities Overall: no clubbing 10/14/2015 None Full Exam - General 1994 Cardiovascular auscultation of heart Overall: regular rate 10/14/2015 None Full Exam - General 1994 Cardiovascular auscultation of heart Overall: normal heart sounds 10/14/2015 None Full Exam - General 1994 Lymphatic neck nodes Overall: anterior cervical chain benign 10/14/2015 None Full Exam - General 1994 Lymphatic neck nodes Overall: posterior cervical chain benign 10/14/2015 None Full Exam - General 1994 Musculoskeletal spine, ribs and pelvis Overall: good posture 10/14/2015 None Full Exam - General 1994 Musculoskeletal gait and station Overall: normal gait 10/14/2015 None Full Exam - General 1994 Musculoskeletal gait and station Overall: normal station 10/14/2015 None Full Exam - General 1994 Musculoskeletal head and neck Overall: head atraumatic 10/14/2015 None Full Exam - General 1994 Integument inspection of skin Overall: no rash, lesions 10/14/2015 None Full Exam - General 1994 Neurologic gait Overall: no ataxia, no unsteadiness 10/14/2015 None Full Exam - General 1994 Neurologic cranial nerves Overall: crainial nerves 2 - 12 grossly intact 10/14/2015 None Full Exam - General 1994 Psychiatric orientation/consciousness Overall: oriented to person, place and time 10/14/2015 None Full Exam - General 1994 Psychiatric mood and affect Overall: normal mood and affect 10/14/2015 None Full Exam - General 1994 Psychiatric appearance Overall: well-groomed, good eye contact 10/14/2015 None Full Exam - General 1994 Ears/Nose/Throat otoscopic exam Tympanic membrane: air- fluid level 10/14/2015 None Full Exam - General 1994 Ears/Nose/Throat oral cavity/pharynx/larynx Posterior Pharynx: clear post nasal drainage 10/14/2015 None Full Exam - General 1994 Ears/Nose/Throat internal nose Sinus tenderness: left maxillary 10/14/2015 None Full Exam - General 1994 Ears/Nose/Throat internal nose Sinus tenderness: right maxillary 10/14/2015 None Full Exam - General 1994 Constitutional general appearance Overall: well developed 08/22/2015 None Full Exam - General 1994 Constitutional general appearance Overall: in no acute distress 08/22/2015 None Full Exam - General 1994 Constitutional general appearance Overall: well nourished 08/22/2015 None Full Exam - General 1994 Eyes conjunctiva /eyelids Overall: conjunctiva clear 08/22/2015 None Full Exam - General 1994 Eyes conjunctiva /eyelids Overall: cornea clear 08/22/2015 None Full Exam - General 1994 Eyes conjunctiva /eyelids Overall: eyelids normal 08/22/2015 None Full Exam - General 1994 Ears/Nose/Throat otoscopic exam Overall: tympanic membranes clear 08/22/2015 None Full Exam - General 1994 Ears/Nose/Throat otoscopic exam Overall: external auditory canals clear 08/22/2015 None Full Exam - General 1994 Ears/Nose/Throat lips/teeth/gingiva Overall: benign lips 08/22/2015 None Full Exam - General 1994 Ears/Nose/Throat lips/teeth/gingiva Overall: normal dentition 08/22/2015 None Full Exam - General 1994 Ears/Nose/Throat oral cavity/pharynx/larynx Overall: oral mucosa clear 08/22/2015 None Full Exam - General 1994 Ears/Nose/Throat oral cavity/pharynx/larynx Overall: oropharyngeal mucosa clear 08/22/2015 None Full Exam - General 1994 Ears/Nose/Throat oral cavity/pharynx/larynx Overall: no masses 08/22/2015 None Full Exam - General 1994 Respiratory auscultation Overall: breath sounds clear bilaterally 08/22/2015 None Full Exam - General 1994 Respiratory respiratory effort/rhythm Overall: no retractions 08/22/2015 None Full Exam - General 1994 Respiratory respiratory effort/rhythm Overall: normal rate 08/22/2015 None Full Exam - General 1994 Cardiovascular extremities Overall: no clubbing 08/22/2015 None Full Exam - General 1994 Cardiovascular auscultation of heart Overall: regular rate 08/22/2015 None Full Exam - General 1994 Cardiovascular auscultation of heart Overall: normal heart sounds 08/22/2015 None Full Exam - General 1994 Abdomen abdominal exam Overall: no tenderness 08/22/2015 None Full Exam - General 1994 Abdomen abdominal exam Overall: normal bowel sounds 08/22/2015 None Full Exam - General 1994 Lymphatic neck nodes Overall: anterior cervical chain benign 08/22/2015 None Full Exam - General 1994 Lymphatic neck nodes Overall: posterior cervical chain benign 08/22/2015 None Full Exam - General 1994 Musculoskeletal gait and station Overall: normal gait 08/22/2015 None Full Exam - General 1994 Musculoskeletal gait and station Overall: normal station 08/22/2015 None Full Exam - General 1994 Musculoskeletal head and neck Overall: head atraumatic 08/22/2015 None Full Exam - General 1994 Musculoskeletal spine, ribs and pelvis Overall: good posture 08/22/2015 None Full Exam - General 1994 Integument inspection of skin Overall: few scattered moles, no gross abnormalities 08/22/2015 None Full Exam - General 1994 Integument inspection of skin Overall: no rash, lesions 08/22/2015 None Full Exam - General 1994 Neurologic gait Overall: no ataxia, no unsteadiness 08/22/2015 None Full Exam - General 1994 Neurologic cranial nerves Overall: crainial nerves 2 - 12 grossly intact 08/22/2015 None Full Exam - General 1994 Psychiatric orientation/consciousness Overall: oriented to person, place and time 08/22/2015 None Full Exam - General 1994 Psychiatric mood and affect Overall: normal mood and affect 08/22/2015 None Full Exam - General 1994 Psychiatric appearance Overall: well-groomed, good eye contact 08/22/2015 None Procedures Procedure Codes Date TRIAMCINOLONE ACET INJ NOS CPT-4: J3301 12/22/2016 ROCEPHIN, PER 250 MG CPT-4: J0696 12/22/2016 TRIAMCINOLONE ACET INJ NOS CPT-4: J3301 10/14/2015 THER/PROPH/DIAG INJ SC/IM CPT-4: 86698 10/14/2015 Vital Signs Date Vital 01/05/2017 Blood Pressure 1: 146/82 Code : 8480-6 Heart Rate 1: 85 bpm Height: SpO2: 97% Weight: 12/22/2016 Blood Pressure 1: 132/78 Code : 8480-6 BMI: 28.4 Code : 02452-6 Heart Rate 1 : 90 bpm Height: 5'10" SpO2: 98% Temperature: 37.2 (C) / 98.9 (F) Weight: 198 lbs 07/16/2016 Blood Pressure 1: 142/82 Code : 8480-6 BMI: 28.7 Code : 81370-6 Heart Rate 1 : 92 bpm Height: 5'10" SpO2: 97% Weight: 200 lbs 10/14/2015 Blood Pressure 1: 130/90 Code : 8480-6 BMI: 26.7 Code : 67381-5 Height: 5'10 " SpO2: 98% Weight: 186 lbs 08/22/2015 Blood Pressure 1: 142/80 Code : 8480-6 BMI: 28.6 Code : 33727-3 Heart Rate 1 : 94 bpm Height: 5'10" SpO2: 98% Weight: 199 lbs Functional Status No Functional Status data History of Present Illness Symptom Name Status Result Effective Date Notes sinus congestion Location frontal sinuses 01/05/2017 None sinus congestion Location maxillary sinuses 01/05/2017 None sinus congestion Location on both sides 01/05/2017 None sinus congestion Quality acute 01/05/2017 None sinus congestion Onset and Resolution ongoing 01/05/2017 None sinus congestion Severity moderate 01/05/2017 None sinus congestion Significant Medical Conditions allergic rhinitis 01/05/2017 None sinus congestion Pertinent Findings cough 01/05/2017 None sinus congestion Pertinent Findings decreased energy level 01/05/2017 None sinus congestion Pertinent Findings facial pain 01/05/2017 None sinus congestion Pertinent Findings Denies facial weakness 01/05/2017 None sinus congestion Pertinent Findings fever 01/05/2017 None sore throat Location diffusely 01/05/2017 None sore throat Quality acute 01/05/2017 None sore throat Onset and Resolution sudden in onset 01/05/2017 None sore throat Pertinent Findings fever 01/05/2017 None sinus congestion Location frontal sinuses 12/22/2016 None sinus congestion Location maxillary sinuses 12/22/2016 None sinus congestion Location on both sides 12/22/2016 None sinus congestion Quality acute 12/22/2016 None sinus congestion Onset and Resolution ongoing 12/22/2016 None sinus congestion Onset of Symptom 6 days ago 12/22/2016 None sinus congestion Severity moderate 12/22/2016 None sinus congestion Significant Medical Conditions allergic rhinitis 12/22/2016 None sinus congestion Pertinent Findings fever 12/22/2016 None sinus congestion Pertinent Findings cough 12/22/2016 None sinus congestion Pertinent Findings decreased energy level 12/22/2016 None sinus congestion Pertinent Findings facial pain 12/22/2016 None sinus congestion Pertinent Findings Denies facial weakness 12/22/2016 None sore throat Location diffusely 12/22/2016 None sore throat Quality acute 12/22/2016 None sore throat Onset and Resolution sudden in onset 12/22/2016 None sore throat Onset of Symptom 6 days ago 12/22/2016 None sore throat Pertinent Findings fever 12/22/2016 None sinus congestion Location on both sides 07/16/2016 None sinus congestion Quality fullness 07/16/2016 None sinus congestion Onset and Resolution sudden in onset 07/16/2016 None sinus congestion Onset of Symptom 5 days ago 07/16/2016 None sinus congestion Frequency of Episodes daily 07/16/2016 None sinus congestion Pertinent Findings hoarseness 07/16/2016 None sore throat Onset and Resolution sudden in onset 07/16/2016 None sore throat Quality aching 07/16/2016 None sore throat Quality constant 07/16/2016 None sore throat Quality scratchy 07/16/2016 None sinus congestion Location on both sides 10/14/2015 None sinus congestion Quality constant 10/14/2015 None sinus congestion Quality fullness 10/14/2015 None sinus congestion Quality pressure 10/14/2015 None sinus congestion Onset and Resolution sudden in onset 10/14/2015 None sinus congestion Onset of Symptom 4 weeks ago 10/14/2015 None sinus congestion Frequency of Episodes daily 10/14/2015 None sinus congestion Pertinent Findings facial pain 10/14/2015 None fatigue Limitation on Activities moderately limits activities 10/14/2015 None fatigue Onset of Symptom 4 weeks ago 10/14/2015 None fatigue Frequency of Episodes daily 10/14/2015 None fatigue Triggers no known associated factors 10/14/2015 None fatigue Pertinent Findings lightheadedness 10/14/2015 None fatigue Quality constant 10/14/2015 None fatigue Onset and Resolution sudden in onset 10/14/2015 None well man exam (18-39 years) Lifestyle no history of physical abuse 08/22/2015 None well man exam (18-39 years) Nutrition and Exercise normal weight 08/22/2015 None well man exam (18-39 years) Nutrition and Exercise regular diet 08/22/2015 None well man exam (18-39 years) Cardiovascular Risk Factors family history of cardiovascular disease None fatigue Quality stable 08/22/2015 None fatigue Onset and Resolution ongoing 08/22/2015 None Advance Directives No Advance Directive data Encounters Encounter Performer Location Codes Date 21316 EST. PATIENT, LEVEL IV Diagnosis: Other acute recurrent sinusitis[ICD10: J01.81] Diagnosis: Other allergic rhinitis[ICD10: J30.89] Diagnosis: Cough[ICD10: R05] Diagnosis: Gastro-esophageal reflux disease without esophagitis[ICD10: K21.9] Xiomara Russ MD, [facility] CPT-4: 28396 01/05/2017 27975 EST. PATIENT, LEVEL IV Diagnosis: Other acute sinusitis[ICD10: J01.80] Diagnosis: Other allergic rhinitis[ICD10: J30.89] Xiomara Russ MD, [facility] CPT-4: 82771 12/22/2016 42602 EST. PATIENT, LEVEL III Diagnosis: Other malaise[ICD10: R53.81] Diagnosis: Acute laryngopharyngitis[ICD10: J06.0] [facility] CPT-4: 10198 07/16/2016 35862 EST. PATIENT, LEVEL IV Diagnosis: Other acute sinusitis[ICD10: J01.80] Diagnosis: Other allergic rhinitis[ICD10: J30.89] Diagnosis: Dizziness and giddiness[ICD10: R42] Xiomara Russ MD, 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] [facility] CPT-4: 06954 08/22/2015 Plan of Care Planned Activity Notes Codes Status Date Appointment: Xiomara Pacheco WPtel: [address] [place], [place] [id number] (15 min) Moderate 01/05/2017 Patient Education: Patient Medication Summary Completed 01/05/2017 Appointment: Xiom[facility] Pacheco [facility]el[facility] [phone] [facility] (15 min) Moderate 12/22/2016 Patient Education: Patient Medication Summary Completed 12/22/2016 Appointment: Xiomara Pacheco [facility]Ptel[facility] [phone] [facility] (15 min) Moderate 07/16/2016 Patient Education: Patient Medication Summary Completed 07/16/2016 Patient Education: Patient Medication Summary Completed 10/14/2015 Patient Education: Obesity Completed 10/14/2015 Patient Education: Patient Medication Summary Completed 08/22/2015 Appointment: Xiomara Pacheco WPtel: [facility] New Patient 08/19/2015 Instructions No Instructions
--- NOTE | 2017-06-06 11:55 | ED GU-Male ---
General Chief Complaint: Abdominal/GI Problems Stated Complaint: STOMACH PAIN Nursing Triage Note: c/o right sided abd pain with radiation down to testicles. Onset Wednesday. Source: patient Exam Limitations: no limitations History of Present Illness Date Seen by Provider: Jun 06, 2017 Time Seen by Provider: 11:55 Initial Comments 31-year-old male patient presents to the emergency department complaints of periumbilical pain now localized to the right lower quadrant. Pain radiates down the right testicle. Onset of symptoms Wednesday. denies a h/o kidney stones. Timing/Duration: getting worse, other (06/04/17) Severity/Quality: aching, sharp, stabbing Location: periumbilical Radiation: RLQ, scrotal Activities at Onset: none Prior Genitourinary Problems: none Sexual [place] History: less than 2 months ago, single partner Modifying Factors: Worsens With Breathing, Worsens With Movement, Worsens With Palpation Allergies and Home Medications Allergies Coded Allergies: azithromycin (Verified Allergy, Unknown, 06/06/17) Home Medications Testosterone Enanthate 200 Mg/1 Ml Vial, 200 MG IM WEEKLY, (Reported) Constitutional: chills, No fever, malaise EENTM: no symptoms reported Respiratory: No cough, No phlegm, No short of breath Cardiovascular: No chest pain, No palpitations, No syncope Gastrointestinal: see HPI, abdominal pain (RLQ), No constipation, No diarrhea, loss of appetite, No melena, nausea, No vomiting Genitourinary: see HPI, denies burning, denies discharge, denies dysuria, denies frequency, denies flank pain, denies hematuria, pain Musculoskeletal: no symptoms reported Skin: no symptoms reported Psychiatric/Neurological: No Symptoms Reported All Other Systemes Reviewed Negative Unless Noted: Yes (Negative excepted noted.) Past Uotyvly-Qayqrd-Rfqkrr Hx Patient Social History Alcohol Use: Occasionally Uses Recreational Drug Use: No Smoking Status: Never a Smoker Former Smoker, Quit: Mar 04, 2005 Recent Foreign Travel: No Contact w/Someone Who Travel: No Recent Infectious Disease Expo: No Recent Hopitalizations: No Seasonal Allergies Seasonal Allergies: Yes Surgeries History of Surgeries: Yes (L KNEE SCOPE) Surgeries: Tonsillectomy Respiratory History of Respiratory Disorde: No Cardiovascular History of Cardiac Disorders: No Neurological History of Neurological Disord: No Reproductive System Hx Reproductive Disorders: No Sexually Transmitted Disease: No HIV/AIDS: No Gastrointestinal History of Gastrointestinal Di: Yes Gastrointestinal Disorders: Chronic Constipation, Chronic Diarrhea, Irritable Bowel Musculoskeletal History of Musculoskeletal Dis: Yes (PLICA SYNDROME LEFT KNEE) Musculoskeletal Disorders: Arthritis Endocrine History of Endocrine Disorders: Yes (LOW TESTOSTERONE LEVELS) HEENT Loss of Vision: Bilateral Hearing Impairment: Denies Cancer History of Cancer: No Psychosocial History of Psychiatric Problem: Yes Behavioral Health Disorders: Anxiety Integumentary History of Skin or Integumenta: No Blood Transfusions History of Blood Disorders: No Adverse Reaction to a Blood Tr: No (N/A) Reviewed Nursing Assessment Reviewed/Agree w Nursing PMH: Yes Family Medical History Significant Family History: Other Conditions/Hx (father has h/o kidney stones) Physical Exam Vital Signs Vital Sign - Last 12Hours 06/06/17 11:08 Temp 99.1 Pulse 86 Resp 18 B/P (MAP) 129/93 (105) Pulse Ox 98 O2 Delivery Room Air Capillary Refill : Less Than 3 Seconds General Appearance: WD/WN, no apparent distress HEENT: PERRL/EOMI, pharynx normal Neck: supple, normal inspection Cardiovascular: normal peripheral pulses, regular rate, rhythm, no edema, no murmur Respiratory: lungs clear, normal breath sounds, no respiratory distress, no accessory muscle use Gastrointestinal: soft, abnormal bowel sounds (hypoactive BS.), guarding (RLQ and suprapubic), rebound, tenderness (generalized tenderness with greatest tenderness in the RLQ and suprapubic), other ((+) rovsing and psoas sign.) Back: normal inspection, no CVA tenderness Extremities: no pedal edema, normal capillary refill Neurologic/Psychiatric: alert, normal mood/affect, oriented x 3 Skin: normal color, warm/dry Progress/Results/Core Measures Suspected Sepsis Recent Fever Within 48 Hours: No Infection Criteria Present: Suspected New Infection New/Unexplained Altered Menta: No Sepsis Screen: No Definite Risk Sepsis Diagnosis: SIRS Temperature:99.1 Pulse: 86 Respiratory Rate: 18 Laboratory Tests 06/06/17 12:05: White Blood Count 12.8H Blood Pressure 129 /93 Mean: 105 Laboratory Tests 06/06/17 12:05: Creatinine 0.90, Platelet Count 273, Total Bilirubin 0.7 Results/Orders Lab Results Laboratory Tests Test 06/06/17 12:05 06/06/17 12:08 Range/Units White Blood Count 12.8 H 4.3-11.0 10^3/uL Red Blood Count 5.06 4.35-5.85 10^6/uL Hemoglobin 15.2 13.3-17.7 G/DL Hematocrit 42 40-54 % Mean Corpuscular Volume 84 80-99 FL Mean Corpuscular Hemoglobin 30 25-34 PG Mean Corpuscular Hemoglobin Concent 36 32-36 G/DL Red Cell Distribution Width 12.8 10.0-14.5 % Platelet Count 273 130-400 10^3/uL Mean Platelet Volume 10.0 7.4-10.4 FL Neutrophils (%) (Auto) 78 H 42-75 % Lymphocytes (%) (Auto) 13 12-44 % Monocytes (%) (Auto) 8 0-12 % Eosinophils (%) (Auto) 1 0-10 % Basophils (%) (Auto) 0 0-10 % Neutrophils # (Auto) 9.9 H 1.8-7.8 X 10^3 Lymphocytes # (Auto) 1.7 1.0-4.0 X 10^3 Monocytes # (Auto) 1.1 H 0.0-1.0 X 10^3 Eosinophils # (Auto) 0.1 0.0-0.3 10^3/uL Basophils # (Auto) 0.0 0.0-0.1 10^3/uL Sodium Level 138 135-145 MMOL/L Potassium Level 3.9 3.6-5.0 MMOL/L Chloride Level 102 98-107 MMOL/L Carbon Dioxide Level 26 21-32 MMOL/L Anion Gap 10 5-14 MMOL/L Blood Urea Nitrogen 11 7-18 MG/DL Creatinine 0.90 0.60-1.30 MG/DL Estimat Glomerular Filtration Rate > 60 BUN/Creatinine Ratio 12 Glucose Level 91 70-105 MG/DL Calcium Level 9.2 8.5-10.1 MG/DL Total Bilirubin 0.7 0.1-1.0 MG/DL Aspartate Amino Transf (AST/SGOT) 15 5-34 U/L Alanine Aminotransferase (ALT/SGPT) 14 0-55 U/L Alkaline Phosphatase 72 40-136 U/L C-Reactive Protein High Sensitivity 1.25 H 0.00-0.50 MG/DL Total Protein 7.5 6.4-8.2 GM/DL Albumin 4.3 3.2-4.5 GM/DL Lipase 21 8-78 U/L Urine Color YELLOW Urine Clarity CLEAR Urine pH 7 5-9 Urine Specific [place] 1.010 L 1.016-1.022 Urine Protein NEGATIVE NEGATIVE Urine Glucose (UA) NEGATIVE NEGATIVE Urine Ketones NEGATIVE NEGATIVE Urine Nitrite NEGATIVE NEGATIVE Urine Bilirubin NEGATIVE NEGATIVE Urine Urobilinogen NORMAL NORMAL MG/DL Urine Leukocyte Esterase NEGATIVE NEGATIVE Urine RBC (Auto) NEGATIVE NEGATIVE Urine RBC NONE /HPF Urine WBC NONE /HPF Urine Squamous Epithelial Cells RARE /HPF Urine Crystals NONE /LPF Urine Bacteria NEGATIVE /HPF Urine Casts NONE /LPF Urine Mucus NEGATIVE /LPF Urine Culture Indicated NO My Orders Orders - JAMES MENDIOLA Cbc With Automated Diff (06/06/17 11:26) Comprehensive Metabolic Panel (06/06/17 11:26) Hs C Reactive Protein (06/06/17 11:26) Lipase (06/06/17 11:26) Ua Culture If Indicated (06/06/17 11:26) Saline Lock/Iv-Start (06/06/17 11:26) Ns Iv 1000 Ml (Sodium Chloride 0.9%) (06/06/17 12:03) Ondansetron Injection (Zofran Injectio (06/06/17 12:15) Fentanyl Injection (Sublimaze Injection (06/06/17 12:03) Ct Abd/Pelv W (Appendicitis) (06/06/17 12:48) Iohexol Injection (Omnipaque 350 Mg/Ml 1 (06/06/17 13:00) Ns (Ivpb) (Sodium Chloride 0.9%) (06/06/17 13:00) Morphine Injection (Morphine Injection (06/06/17 13:45) Medications Given in ED Current Medications Medications Dose Ordered Sig/Efrain Route Start Time Stop Time Status Last Admin Dose Admin Iohexol 100 ml ONCE ONCE IV 06/06/17 13:00 06/06/17 13:01 DC 06/06/17 17:04 100 ML Ondansetron HCl 4 mg ONCE ONCE IVP 06/06/17 12:15 06/06/17 12:16 DC 06/06/17 12:13 4 MG Sodium Chloride 80 ml ONCE ONCE IV 06/06/17 13:00 06/06/17 13:01 DC 06/06/17 17:04 80 ML Sodium Chloride 1,000 ml @ 0 mls/hr Q0M ONCE IV 06/06/17 12:03 06/06/17 12:05 DC 06/06/17 12:13 1,000 MLS/HR Vital Signs/I&O Vital Sign - Last 12Hours 06/06/17 06/06/17 11:08 12:13 Temp 99.1 99.1 Pulse 86 Resp 18 B/P (MAP) 129/93 (105) Pulse Ox 98 O2 Delivery Room Air Capillary Refill : Less Than 3 Seconds Blood Pressure Mean: 105 Diagnostic Imaging Diagonstic Imaging: CT Plain Films/CT/US/NM/MRI: abdomen, pelvis Comments CT ABD/PELV W (APPENDICITIS) PROCEDURE: CT abdomen and pelvis with contrast, rule out appendicitis. TECHNIQUE: Multiple contiguous axial images were obtained through the abdomen and pelvis after the administration of intravenous contrast. INDICATION: Periumbilical pain radiating inferiorly accompanied by nausea. There is a tubular structure off the posterior wall of the cecum, oriented cephalad, believed to reflect the nondilated normal-appearing appendix. There is no hydronephrosis. The liver, spleen, adrenals and pancreas are unremarkable. The gallbladder is unremarkable. There is thickening of the turner of the urinary bladder. Cystitis could not be excluded. There is a small amount of pelvic free fluid without loculation. There is no evidence for diverticulitis. The liver, gallbladder, spleen, adrenals and pancreas are unremarkable. The kidneys are normal. IMPRESSION: Unremarkable appendix, unobstructed urinary tracts. Pelvic free fluid and thickening of the urinary bladder turner. Urinary tract infection and cystitis could not be excluded, correlate clinically. No diverticulitis. Remaining abdominal pelvic solid and hollow viscera are otherwise unremarkable. ADDENDUM: Case was discussed with the ordering physician. There does appear to be a fat-containing inflammatory process in the midline lower pelvis posterior to the dome of the urinary bladder and along the mesenteric border of a segment of sigmoid colon. This process has fatty central component an inflammatory type density and appearance measuring about 2.1 cm. Epiploic appendagitis would be a consideration for this finding. The typical appearance of diverticulitis would be less likely as there are no focal regional diverticuli at that level. This may account for the bladder wall thickening as well as the presence of pelvic free fluid. We discussed the appendix which again is posterior to the cecum and does not show pathological features. Dictated by: Dictated on workstation # [id number] Reviewed: Reviewed by Me (radiology report reviewed by me) Departure Communication (Admissions) Time/Spoke to Admitting Phy: 15:[address] Russ graciously accepts patient to her medical service for IV antibiotics and surgical consult. Time/Spoke to Consulting Phy: 15:45 Communication/Consulting Dr. Diaz notified of surgical consult. Progress Notes Patient seen and evaluated. Patient given 2 L of normal saline, fentanyl 50 g , 5 mg of morphine, and 30 mg of Toradol with improvement in symptoms. All laboratory findings, diagnostic study findings, and recommendations for admission discussed with the patient. Patient verbalizes understanding and agrees with the treatment plan. Patient case discussed with Dr. Wu, he agrees with the plan of care. Impression Impression: Primary Impression: Epiploic appendagitis Additional Impressions: Lower abdominal pain Leukocytosis Qualified Codes: D72.829 - Elevated white blood cell count, unspecified Disposition: 09 ADMITTED INPATIENT Condition: Stable Admissions Decision to Admit Reason: Admit from ER (General) Decision to Admit/Date: Jun 06, 2017 Time/Decision to Admit Time: 15:40 Departure-Patient Inst. Referrals: ANSELMO RUSS MD (PCP/Family) Primary Care Physician JAMES MENDIOLA Jun 06, 2017 11:55
[2017-06-06] MEDS ORDERED: NS IV 1000 ML 1,000 ML IV ONE (12:03)
[2017-06-06] MEDS ORDERED: fentaNYL INJECTION 100 MCG/2 ML AMP IVP STA (12:03)
[2017-06-06 12:11] LABS: BASOPHILS % (AUTO) 0 % (0-10); EOSINOPHILS # (AUTO) 0.1 10^3/uL (0.0-0.3); EOSINOPHILS % (AUTO) 1 % (0-10); HEMATOCRIT 42 % (40-54); HEMOGLOBIN 15.2 G/DL (13.3-17.7); LYMPHOCYTES # (AUTO) 1.7 X 10^3 (1.0-4.0); LYMPHOCYTES % (AUTO) 13 % (12-44); MEAN CORPUSCULAR HEMOGLOBIN 30 PG (25-34); MEAN CORPUSCULAR HGB CONC 36 G/DL (32-36); MEAN CORPUSCULAR VOLUME 84 FL (80-99); MONOCYTES # (AUTO) 1.1 X 10^3 (0.0-1.0); MONOCYTES % (AUTO) 8 % (0-12); NEUTROPHILS # (AUTO) 9.9 X 10^3 (1.8-7.8); NEUTROPHILS % (AUTO) 78 % (42-75); PLATELET COUNT 273 10^3/uL (130-400); RED BLOOD COUNT 5.06 10^6/uL (4.35-5.85); RED CELL DISTRIBUTION WIDTH 12.8 % (10.0-14.5); WHITE BLOOD COUNT 12.8 10^3/uL (4.3-11.0)
[2017-06-06] MEDS ORDERED: ONDANSETRON 4 MG/2 ML (SDV) Z0FRAN IVP ONE (12:15)
[2017-06-06 12:21] LABS: BILIRUBIN,URINE NEGATIVE (NEGATIVE); CLARITY,URINE CLEAR; COLOR,URINE YELLOW; GLUCOSE, URINE (UA) NEGATIVE (NEGATIVE); KETONES,URINE NEGATIVE (NEGATIVE); LEUKOCYTE ESTERASE ,URINE NEGATIVE (NEGATIVE); NITRITE,URINE NEGATIVE (NEGATIVE); PH,URINE 7 (5-9); PROTEIN,URINE NEGATIVE (NEGATIVE); UROBILINOGEN,URINE NORMAL (NORMAL)
[2017-06-06 12:28] LABS: ALANINE AMINOTRANSFERASE 14 U/L (0-55); ALBUMIN 4.3 GM/DL (3.2-4.5); ALKALINE PHOSPHATASE 72 U/L (40-136); BILIRUBIN,TOTAL 0.7 MG/DL (0.1-1.0); BUN/CREATININE RATIO 12; CALCIUM 9.2 MG/DL (8.5-10.1); CARBON DIOXIDE 26 MMOL/L (21-32); CHLORIDE 102 MMOL/L (98-107); GFR ESTIMATED > 60; GLUCOSE 91 MG/DL (70-105); LIPASE 21 U/L (8-78); POTASSIUM 3.9 MMOL/L (3.6-5.0); SODIUM 138 MMOL/L (135-145); TOTAL PROTEIN 7.5 GM/DL (6.4-8.2)
[2017-06-06 12:38] LABS: BACTERIA,URINE NEGATIVE /HPF; SQUAMOUS EPITHELIAL CELL,UR RARE /HPF
[2017-06-06] MEDS ORDERED: IOHEXOL 350 MG/ML 100 ML (OMNIPAQUE 350) VIAL IV ONE (13:00)
[2017-06-06] MEDS ORDERED: NS 250 ML (IVPB) BAG IV ONE (13:00)
[2017-06-06] MEDS ORDERED: morphine INJ 10 MG/ML 1ML (SYR OR VIAL) IVP STA (13:45)
--- NOTE | 2017-06-06 13:49 | Diagnostic Imaging Report ---
PROCEDURE: CT abdomen and pelvis with contrast, rule out appendicitis. TECHNIQUE: Multiple contiguous axial images were obtained through the abdomen and pelvis after the administration of intravenous contrast. INDICATION: Periumbilical pain radiating inferiorly accompanied by nausea. There is a tubular structure off the posterior wall of the cecum, oriented cephalad, believed to reflect the nondilated normal-appearing appendix. There is no hydronephrosis. The liver, spleen, adrenals and pancreas are unremarkable. The gallbladder is unremarkable. There is thickening of the turner of the urinary bladder. Cystitis could not be excluded. There is a small amount of pelvic free fluid without loculation. There is no evidence for diverticulitis. The liver, gallbladder, spleen, adrenals and pancreas are unremarkable. The kidneys are normal. IMPRESSION: Unremarkable appendix, unobstructed urinary tracts. Pelvic free fluid and thickening of the urinary bladder turner. Urinary tract infection and cystitis could not be excluded, correlate clinically. No diverticulitis. Remaining abdominal pelvic solid and hollow viscera are otherwise unremarkable. ADDENDUM: Case was discussed with the ordering physician. There does appear to be a fat-containing inflammatory process in the midline lower pelvis posterior to the dome of the urinary bladder and along the mesenteric border of a segment of sigmoid colon. This process has fatty central component an inflammatory type density and appearance measuring about 2.1 cm. Epiploic appendagitis would be a consideration for this finding. The typical appearance of diverticulitis would be less likely as there are no focal regional diverticuli at that level. This may account for the bladder wall thickening as well as the presence of pelvic free fluid. We discussed the appendix which again is posterior to the cecum and does not show pathological features. Dictated by: Dictated on workstation # [id number]
[2017-06-06] MEDS ORDERED: KETOROLAC 30 MG/ML VIAL IVP STA (15:44)
[2017-06-06] MEDS ORDERED: PIPERACILLIN/TAZO 4.5 GM VIAL (ZOSYN) IV ONE (15:45)
[2017-06-06] MEDS ORDERED: NS (IVPB) 100 ML ONE (15:50)
--- OUTSIDE RECORDS SUMMARY | 2017-06-06 16:34 | XMS REPORT | Continuity of Care Document ---
Author Author [facility] Organization [facility] Address Unknown Phone Unavailable Allergies Active Description Code Type Severity Reaction Onset Reported/Identified Relationship to Patient Clinical Status Yes azithromycin [id number] Drug Allergy Unknown N/A 03/04/2017 Medications There [...] SANTIAGO APRN Ot E25.9 08/11/2015 UBALDO SANTIAGO [employer] Ot E25.9 ADRENOGENITAL DISORDER, UNSPECIFIED 09/29/2015 UBALDO SANTIAGO [employer] Ot E25.9 ADRENOGENITAL DISORDER, UNSPECIFIED 09/29/2015 UBALDO SANTIAGO [employer] Ot E25.9 ADRENOGENITAL DISORDER, UNSPECIFIED 09/29/2015 UBALDO SANTIAGO [employer] Ot E25.9 ADRENOGENITAL DISORDER, UNSPECIFIED 09/29/2015 UBALDO SANTIAGO [employer] Ot E25.9 ADRENOGENITAL DISORDER, UNSPECIFIED 10/21/2015 GLORIA BRAND [employer] Ot 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 HYPOFUNCTION 10/21/2015 GLORIA BRAND [employer] Ot I10 ESSENTIAL (PRIMARY) HYPERTENSION 12/19/2015 UBALDO SANTIAGO [employer] Ot E25.9 ADRENOGENITAL DISORDER, UNSPECIFIED 12/19/2015 UBALDO SANTIAGO [employer] Ot E25.9 ADRENOGENITAL DISORDER, UNSPECIFIED 12/19/2015 GLORIA BRAND [employer] Ot 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 HYPOFUNCTION 12/19/2015 GLORIA BRAND [employer] Ot I10 ESSENTIAL (PRIMARY) HYPERTENSION 12/20/2015 UBALDO SANTIAGO [employer] Ot E25.9 ADRENOGENITAL DISORDER, UNSPECIFIED 12/20/2015 UBALDO SANTIAGO [employer] Ot E25.9 ADRENOGENITAL DISORDER, UNSPECIFIED 12/20/2015 GLORIA BRAND [employer] Ot 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 HYPOFUNCTION 12/20/2015 GLORIA BRAND [employer] Ot I10 ESSENTIAL (PRIMARY) HYPERTENSION 01/07/2016 GLORIA BRAND [employer] Ot 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 HYPOFUNCTION 01/07/2016 GLORIA BRAND [employer] Ot Z79.899 OTHER JAIL MANAGER (CURRENT) DRUG THERAPY 01/07/2016 GLORIA BRAND [employer] Ot 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 HYPOFUNCTION 01/07/2016 GLORIA BRAND [employer] Ot Z79.899 OTHER PENITENTIARY (CURRENT) DRUG THERAPY 02/03/2016 UBALDO SANTIAGO [employer] Ot E25.9 ADRENOGENITAL DISORDER, UNSPECIFIED 02/03/2016 UBALDO SANTIAGO [employer] Ot E25.9 ADRENOGENITAL DISORDER, UNSPECIFIED 02/03/2016 GLORIA BRAND [employer] Ot 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 HYPOFUNCTION 02/03/2016 GLORIA BRAND [employer]CH[employer] Ot I10 ESSENTIAL (PRIMARY) HYPERTENSION 02/03/2016 GLORIA BRAND [employer] Ot 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 HYPOFUNCTION 02/03/2016 GLORIA BRAND [employer] Ot Z79.899 OTHER JAIL MANAGER (CURRENT) DRUG THERAPY 10/19/2016 UBALDO SANTIAGO [employer] Ot E25.9 ADRENOGENITAL DISORDER, UNSPECIFIED 10/19/2016 UBALDO SANTIAGO [employer] Ot E25.9 ADRENOGENITAL DISORDER, UNSPECIFIED 10/19/2016 GLORIA BRAND [employer] Ot 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 HYPOFUNCTION 10/19/2016 GLORIA BRAND [employer] Ot I10 ESSENTIAL (PRIMARY) HYPERTENSION 10/19/2016 GLORIA BRAND [employer] Ot 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 HYPOFUNCTION 10/19/2016 GLORIA BRAND [employer] Ot Z79.899 OTHER JAIL MANAGER (CURRENT) DRUG THERAPY 10/26/2016 UBALDO SANTIAGO [employer] Ot E25.9 ADRENOGENITAL DISORDER, UNSPECIFIED 10/26/2016 UBALDO SANTIAGO [employer] Ot E25.9 ADRENOGENITAL DISORDER, UNSPECIFIED 10/26/2016 GLORIA BRAND [employer] Ot 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 HYPOFUNCTION 10/26/2016 GLORIA BRAND [employer] Ot I10 ESSENTIAL (PRIMARY) HYPERTENSION 10/26/2016 GLORIA BRAND [employer] Ot 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 HYPOFUNCTION 10/26/2016 GLORIA BRAND [employer] Ot Z79.899 OTHER PENITENTIARY (CURRENT) DRUG THERAPY 10/28/2016 GLORIA BRAND [employer] Ot 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 HYPOFUNCTION 12/13/2016 UBALDO SANTIAGO [employer] Ot E25.9 ADRENOGENITAL DISORDER, UNSPECIFIED 12/13/2016 UBALDO SANTIAGO [employer] Ot E25.9 ADRENOGENITAL DISORDER, UNSPECIFIED 12/13/2016 GLORIA BRAND [employer] Ot 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 HYPOFUNCTION 12/13/2016 GLORIA BRAND [employer]CH[employer] Ot I10 ESSENTIAL (PRIMARY) HYPERTENSION 12/13/2016 GLORIA BRAND [employer] Ot 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 HYPOFUNCTION 12/13/2016 GLORIA BRAND [employer] Ot Z79.899 OTHER JAIL MANAGER (CURRENT) DRUG THERAPY 12/13/2016 GLORIA BRAND APRN Ot 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 HYPOFUNCTION 12/24/2016 STEPHEN GOODMAN MD Ot G47.33 OBSTRUCTIVE SLEEP APNEA (ADULT) (PEDIATR 01/07/2017 STEPHEN GOODMAN MD Ot J32.8 OTHER CHRONIC SINUSITIS 01/07/2017 STEPHEN GOODMAN MD Ot 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 01/24/2017 GLORIA BRAND [employer] Ot 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 HYPOFUNCTION 02/02/2017 STEPHEN GOODMAN [...] FOR OTHER PREPROCEDURAL EXAMIN 03/04/2017 UBALDO SANTIAGO [employer] Ot E25.9 ADRENOGENITAL DISORDER, UNSPECIFIED 03/04/2017 UBALDO SANTIAGO [employer] Ot E25.9 ADRENOGENITAL DISORDER, UNSPECIFIED 03/04/2017 GLORIA BRAND [employer] Ot 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 HYPOFUNCTION 03/11/2017 UBALDO SANTIAGO [employer] Ot E25.9 ADRENOGENITAL DISORDER, UNSPECIFIED 03/11/2017 UBALDO SANTIAGO [employer] Ot E25.9 ADRENOGENITAL DISORDER, UNSPECIFIED 03/11/2017 GLROIA BRAND [employer] Ot 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 HYPOFUNCTION 03/11/2017 GLORIA BRAND [employer] Ot I10 ESSENTIAL (PRIMARY) HYPERTENSION 03/11/2017 GLORIA BRAND APRN Ot 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 HYPOFUNCTION 03/11/2017 GLORIA BRAND [employer] Ot Z79.899 OTHER PENITENTIARY (CURRENT) DRUG THERAPY 03/11/2017 STEPHEN GOODMAN MD Ot J32.8 OTHER CHRONIC SINUSITIS 03/11/2017 STEPHEN GOODMAN MD Ot 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 03/11/2017 GLORIA BRAND [employer] Ot 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 HYPOFUNCTION 03/11/2017 JAMES UMAÑA [...] 03/11/2017 STEPHEN GOODMAN MD Ot Z79.899 OTHER PENITENTIARY (CURRENT) DRUG THERAPY 03/11/2017 STEPHEN GOODMAN MD [...] 03/24/2017 STEPHEN GOODMAN MD Ot Z79.899 OTHER PENITENTIARY (CURRENT) DRUG THERAPY 03/24/2017 STEPHEN GOODMAN MD Ot Z87.891 PERSONAL HISTORY OF NICOTINE DEPENDENCE 04/29/2017 UBALDO SANTIAGO [employer] Ot E25.9 ADRENOGENITAL DISORDER, UNSPECIFIED 04/29/2017 UBALDO SANTIAGO [employer] Ot E25.9 ADRENOGENITAL DISORDER, UNSPECIFIED 04/29/2017 GLORIA BRAND [employer] Ot 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 HYPOFUNCTION 04/29/2017 GLORIA BRAND [employer] Ot I10 ESSENTIAL (PRIMARY) HYPERTENSION 04/29/2017 GLORIA BRAND [employer] Ot 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 HYPOFUNCTION 04/29/2017 GLORIA BRAND APRN Ot Z79.899 OTHER PENITENTIARY (CURRENT) DRUG THERAPY 04/29/2017 STEPHEN GOODMAN MD Ot J32.8 OTHER CHRONIC SINUSITIS 04/29/2017 STEPHEN GOODMAN MD Ot 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 04/29/2017 GLORIA BRAND APRN Ot 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 HYPOFUNCTION 04/29/2017 JAMES UMAÑA MD Ot E03.9 HYPOTHYROIDISM, UNSPECIFIED 04/29/2017 JAMES UMÑAA MD Ot 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 HYPOFUNCTION 05/31/2017 GLORIA BRAND [employer] Ot J06.9 ACUTE UPPER RESPIRATORY INFECTION, UNSPE 05/31/2017 GLORIA BRAND [employer] Ot R53.81 OTHER MALAISE 06/06/2017 UBALDO SANTIAGO [employer] Ot E25.9 ADRENOGENITAL DISORDER, UNSPECIFIED 06/06/2017 UBALDO SANTIAGO [employer] Ot E25.9 ADRENOGENITAL DISORDER, UNSPECIFIED 06/06/2017 GLORIA BRAND [employer] Ot 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 HYPOFUNCTION 06/06/2017 GLORIA BRAND [employer] Ot I10 ESSENTIAL (PRIMARY) HYPERTENSION 06/06/2017 GLORIA BRAND [employer] Ot 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 HYPOFUNCTION 06/06/2017 GLORIA BRAND [employer] Ot Z79.899 OTHER PENITENTIARY (CURRENT) DRUG THERAPY 06/06/2017 STEPHEN GOODMAN MD Ot J32.8 OTHER CHRONIC SINUSITIS 06/06/2017 STEPHEN GOODMAN MD Ot 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 06/06/2017 GLORIA BRAND [employer] Ot 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 HYPOFUNCTION 06/06/2017 JAMES UMAÑA MD, Ot E03.9 HYPOTHYROIDISM, UNSPECIFIED 06/06/2017 JAMES UMAÑA MD Ot 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 HYPOFUNCTION 06/06/2017 GLORIA BRAND APRN Ot J06.9 ACUTE UPPER RESPIRATORY INFECTION, UNSPE 06/06/2017 GLORIA BRAND APRN Ot R53.81 OTHER MALAISE [...] resistant Staphylococcus aureus (MRSA) screening culture NEG [facility] Influenza virus A and B antigen detection - 05/28/17 14:44 FLU RESULT NEGATIVE FOR INFLUENZA A AND B ANTIGENS BY IA [facility] Complete blood count (CBC) with automated white blood cell (WBC) differential - 06/06/17 12:05 Blood leukocytes automated count (number/volume) 12.8 10*3/uL 4.3-11.0 Blood erythrocytes automated count (number/volume) 5.06 10*6/uL 4.35-5.85 Venous blood hemoglobin measurement (mass/volume) 15.2 g/dL 13.3-17.7 Blood hematocrit (volume fraction) 42 % 40-54 Automated erythrocyte mean corpuscular volume 84 [foz_us] 80-99 Automated erythrocyte mean corpuscular hemoglobin (mass per erythrocyte) 30 pg 25-34 Automated erythrocyte mean corpuscular hemoglobin concentration measurement ( mass/volume) 36 g/dL 32-36 Automated erythrocyte distribution width ratio 12.8 % 10.0-14.5 Automated blood platelet count (count/volume) 273 10*3/uL 130-400 Automated blood platelet mean volume measurement 10.0 [foz_us] 7.4-10.4 Automated blood neutrophils/100 leukocytes 78 % 42-75 Automated blood lymphocytes/100 leukocytes 13 % 12-44 Blood monocytes/100 leukocytes 8 % 0-12 Automated blood eosinophils/100 leukocytes 1 % 0-10 Automated blood basophils/100 leukocytes 0 % 0-10 Blood neutrophils automated count (number/volume) 9.9 10*3 1.8-7.8 Blood lymphocytes automated count (number/volume) 1.7 10*3 1.0-4.0 Blood monocytes automated count (number/volume) 1.1 10*3 0.0-1.0 Automated eosinophil count 0.1 10*3/uL 0.0-0.3 Automated blood basophil count (count/volume) 0.0 10*3/uL 0.0-0.1 Comprehensive metabolic panel - 06/06/17 12:05 Serum or plasma sodium measurement (moles/volume) 138 mmol/L 135-145 Serum or plasma potassium measurement (moles/volume) 3.9 mmol/L 3.6-5.0 Serum or plasma chloride measurement (moles/volume) 102 mmol/L 98-107 Carbon dioxide 26 mmol/L 21-32 Serum or plasma anion gap determination (moles/volume) 10 mmol/L 5-14 Serum or plasma urea nitrogen measurement (mass/volume) 11 mg/dL 7-18 Serum or plasma creatinine measurement (mass/volume) 0.90 mg/dL 0.60-1.30 Serum or plasma urea nitrogen/creatinine mass ratio 12 NRG Serum or plasma creatinine measurement with calculation of estimated glomerular filtration rate > NRG Serum or plasma glucose measurement (mass/volume) 91 mg/dL 70-105 Serum or plasma calcium measurement (mass/volume) 9.2 mg/dL 8.5-10.1 Serum or plasma total bilirubin measurement (mass/volume) 0.7 mg/dL 0.1-1.0 Serum or plasma alkaline phosphatase measurement (enzymatic activity/volume) 72 U/L 40-136 Serum or plasma aspartate aminotransferase measurement (enzymatic activity/ volume) 15 U/L 5-34 Serum or plasma alanine aminotransferase measurement (enzymatic activity/volume ) 14 U/L 0-55 Serum or plasma protein measurement (mass/volume) 7.5 g/dL 6.4-8.2 Serum or plasma albumin measurement (mass/volume) 4.3 g/dL 3.2-4.5 Lipase - 06/06/17 12:05 Lipase 21 U/L 8-78 Serum or plasma C reactive protein measurement (mass/volume) - 06/06/17 12:05 Serum or plasma C reactive protein measurement (mass/volume) 1.25 mg /dL 0.00-0.50 Complete urinalysis with reflex to culture - 06/06/17 12:08 Urine color determination YELLOW NRG Urine clarity determination CLEAR NRG Urine pH measurement by test strip 7 5-9 Specific gravity of urine by test strip 1.010 1.016- 1.022 Urine protein assay by test strip, semi-quantitative NEGATIVE NEGATIVE Urine glucose detection by automated test strip NEGATIVE NEGATIVE Erythrocytes detection in urine sediment by light microscopy NEGATIVE NEGATIVE Urine ketones detection by automated test strip NEGATIVE NEGATIVE Urine nitrite detection by test strip NEGATIVE NEGATIVE Urine total bilirubin detection by test strip NEGATIVE NEGATIVE Urine urobilinogen measurement by automated test strip (mass/volume) NORMAL NORMAL Urine leukocyte esterase detection by dipstick NEGATIVE NEGATIVE Automated urine sediment erythrocyte count by microscopy (number/high power field) NONE NRG Automated urine sediment leukocyte count by microscopy (number/high power field ) NONE NRG Bacteria detection in urine sediment by light microscopy NEGATIVE NRG Squamous epithelial cells detection in urine sediment by light microscopy RARE NRG Crystals detection in urine sediment by light microscopy NONE NRG Casts detection in urine sediment by light microscopy NONE NRG Mucus detection in urine sediment by light microscopy NEGATIVE NRG Complete urinalysis with reflex to culture NO NRG Encounters ACCT No. Visit Date/Time Discharge Status Pt. Type Provider Facility Loc./Unit Complaint [id number] 05/28/2017 14:32:00 05/28/2017 23:59:59 CLS Outpatient GLORIA BRAND APRN [facility] LAB R53.8, J06.9 [id number] 03/11/2017 06:33:00 03/11/2017 13:40:00 DIS Outpatient STEPHEN GOODMAN MD [facility] CHRONIC SINUSITIS, DEVIATED SEPTUM, TURBINATED HYP [id number] 03/04/2017 05:33:00 03/04/2017 12:26:00 DIS Outpatient STEPHEN GOODMAN MD [facility] PREOP CHRONIC SINUSITIS [id number] 02/03/2017 16:20:00 02/03/2017 23:59:59 CLS Outpatient JAMES UMAÑA MD [facility] LAB E03.9 E29.1 [id number] 01/25/2017 00:21:00 01/25/2017 23:59:59 CLS Preadmit GLORIA BRAND APRN [facility] LAB E28.1 E29.1 [id number] 10/26/2016 16:44:00 01/24/2017 00:01:00 DIS Outpatient GLORIA BRAND APRN [facility] LAB E28.1 E29.1 [id number] 01/06/2017 16:35:00 01/06/2017 23:59:59 CLS Outpatient STEPHEN GOODMAN MD [facility] RAD CHRONIS SINUSITIS [id number] 12/24/2016 16:00:00 12/24/2016 16:16:00 DIS Outpatient STEPHEN GOODMAN MD [facility] SLEEP OBSTRUCTIVE SLEEP APNEA [id number] 01/03/2016 14:29:00 01/03/2016 23:59:59 CLS Outpatient GLORIA BRAND APRN [facility] LAB JAIL MANAGER DRUG THERAPY,TESTICULAR HYPOFUNCTION [id number] 10/19/2015 10:17:00 10/19/2015 23:59:59 CLS Outpatient GLORIA BRAND APRN [facility] LAB ROUTINE HTN E29.1 [id number] 08/12/2015 00:10:00 08/12/2015 23:59:59 CLS Preadmit UBALDO SANTIAGO APRN [facility] LAB ADRENOGENITAL DISORDER [id number] 07/04/2015 12:07:00 08/11/2015 00:01:00 DIS Outpatient UBALDO SANTIAGO APRN [facility] LAB ADRENOGENITAL DISORDER [id number] 07/15/2015 17:24:00 07/15/2015 23:59:59 CLS Outpatient REGAN DRAKE [facility] QUICK [id number] 06/28/2015 00:08:00 06/28/2015 23:59:59 CLS Preadmit UBALDO SANTIAGO APRN [facility] LAB ADRENOGENITAL DISORDER [id number] 05/02/2015 14:13:00 06/27/2015 00:01:00 DIS Outpatient UBALDO SANTIAGO APRN [facility] LAB [id number] 04/02/2015 12:10:00 04/02/2015 15:26:00 DIS Emergency JAMES LEWIS [facility] ER [id number] 03/21/2013 11:05:00 03/21/2013 16:55:00 DIS Outpatient JOHN HENAO DO [facility] SDC [id number] 03/14/2013 09:47:00 03/14/2013 23:59:59 CLS Outpatient JOHN HENAO DO [facility] PREOP [id number] 01/10/2013 14:03:00 01/10/2013 23:59:59 CLS Outpatient JOHN HENAO DO [facility] RAD [id number] 12/27/2012 14:02:00 12/27/2012 23:59:59 CLS Outpatient JOHN HENAO DO [facility] RAD [id number] 06/06/2017 15:40:00 ACT Inpatient PEARL CORDOVA, KATHARINE aWrd [facility] 4TH ACUTE EPIPLOICA APPENDIGITIS,LOWER ABD PAIN, LEUKOC [id number] 07/06/2014 16:52:00 Document Registration [id number] 05/05/2012 13:47:00 Document Registration [id number] 04/14/2012 13:37:00 Document Registration
[2017-06-06 16:45] VITALS: BP 116/59
[2017-06-06] MEDS ORDERED: PIPERACILLIN/TAZOBACTAM 4.5 GM/D5W 100 ML IVPB IV NR ×2 (16:55)
[2017-06-06] MEDS: NS IV 1000 ML 1,000 ML IV SCH (16:58)
[2017-06-06] MEDS ORDERED: fentaNYL INJECTION 100 MCG/2 ML AMP IV PRN (17:00)
[2017-06-06] MEDS ORDERED: ONDANSETRON 4 MG/2 ML (SDV) Z0FRAN IV PRN (17:00)
[2017-06-06] MEDS: HYDROcodone/APAP 5 MG/325 MG (LORTAB) TAB PO PRN (17:01)
[2017-06-06 19:30] VITALS: BP 111/59
[2017-06-06] MEDS: FAMOTIDINE 20MG/2ML IV (PEPCID) IV SCH (20:24)
[2017-06-06] MEDS ORDERED: KETOROLAC 30 MG/ML VIAL IV PRN (21:00)
[2017-06-06] MEDS: PIPERACILLIN SODIUM/TAZOBACTAM 4.5 GM in D5W 100 ML IVPB 100 ML IV SCH (21:29)
[2017-06-06] MEDS ORDERED: PIPERACILLIN/TAZOBACTAM 4.5 GM/D5W 100 ML IVPB IV SCH ×2 (23:00)
[2017-06-07 00:58] VITALS: BP 110/60
[2017-06-07] MEDS: HYDROcodone/APAP 5 MG/325 MG (LORTAB) TAB PO PRN ×2 (01:30→17:00)
[2017-06-07] MEDS: NS IV 1000 ML 1,000 ML IV SCH ×3 (01:32→10:41)
[2017-06-07 03:42] VITALS: BP 100/55
[2017-06-07] MEDS: PIPERACILLIN SODIUM/TAZOBACTAM 4.5 GM in D5W 100 ML IVPB 100 ML IV SCH ×2 (05:27→15:01)
[2017-06-07 06:24] LABS: BASOPHILS % (AUTO) 1 % (0-10); EOSINOPHILS # (AUTO) 0.2 10^3/uL (0.0-0.3); EOSINOPHILS % (AUTO) 3 % (0-10); HEMATOCRIT 37 % (40-54); HEMOGLOBIN 13.3 G/DL (13.3-17.7); LYMPHOCYTES # (AUTO) 1.7 X 10^3 (1.0-4.0); LYMPHOCYTES % (AUTO) 25 % (12-44); MEAN CORPUSCULAR HEMOGLOBIN 30 PG (25-34); MEAN CORPUSCULAR HGB CONC 36 G/DL (32-36); MEAN CORPUSCULAR VOLUME 85 FL (80-99); MEAN PLATELET VOLUME 10.4 FL (7.4-10.4); MONOCYTES # (AUTO) 0.7 X 10^3 (0.0-1.0); MONOCYTES % (AUTO) 11 % (0-12); NEUTROPHILS # (AUTO) 4.1 X 10^3 (1.8-7.8); NEUTROPHILS % (AUTO) 61 % (42-75); PLATELET COUNT 243 10^3/uL (130-400); RED CELL DISTRIBUTION WIDTH 12.7 % (10.0-14.5); WHITE BLOOD COUNT 6.7 10^3/uL (4.3-11.0)
[2017-06-07 06:57] LABS: ALANINE AMINOTRANSFERASE 12 U/L (0-55); ALBUMIN 3.5 GM/DL (3.2-4.5); ALKALINE PHOSPHATASE 69 U/L (40-136); BILIRUBIN,TOTAL 0.4 MG/DL (0.1-1.0); BUN/CREATININE RATIO 15; CARBON DIOXIDE 24 MMOL/L (21-32); CHLORIDE 105 MMOL/L (98-107); CREATININE SERUM 0.81 MG/DL (0.60-1.30); GFR ESTIMATED > 60; GLUCOSE 95 MG/DL (70-105); SODIUM 139 MMOL/L (135-145); TOTAL PROTEIN 6.1 GM/DL (6.4-8.2)
[2017-06-07] MEDS ORDERED: INFLUENZA TRIvalent 2017-2018 0.5 ML/45 MCG SYR IM ONE (07:00)
[2017-06-07 08:00] VITALS: BP 131/62
[2017-06-07] MEDS: FAMOTIDINE 20MG/2ML IV (PEPCID) IV SCH (08:15)
[2017-06-07] MEDS ORDERED: MULT-974 PO (08:42)
[2017-06-07] MEDS ORDERED: CETI10TA20 PO (08:42)
[2017-06-07] MEDS ORDERED: GLUC1CAP37 PO (08:42)
[2017-06-07] MEDS ORDERED: LACT1CAP62 PO (08:42)
[2017-06-07] MEDS ORDERED: TEST200V21 PO (08:42)
--- NOTE | 2017-06-07 10:41 | Consultation ---
History of Present Illness History of Present Illness Patient Consulted On(ok/time) 06/07/17 10:36 Time Seen by Provider: 09:42 History of Present Illness Surgery asked to consult regarding abdominal pain; suspected Epiploica Appendigitis. HPI per ED: 31-year-old male patient presents to the emergency department complaints of periumbilical pain now localized to the right lower quadrant. Pain radiates down the right testicle. Onset of symptoms Wednesday. denies a h/o kidney stones. Timing/Duration: getting worse, other (06/04/17) Severity/Quality: aching, sharp, stabbing Location: periumbilical Radiation: RLQ, scrotal Activities at Onset: none Prior Genitourinary Problems: none Modifying Factors: Worsens With Breathing, Worsens With Movement, Worsens With Palpation When seen this am pt states that if he lays still he has no pain, but when he tried to sit up he "only made it 10 minutes before the pain became so severe I had to lie back down". He was eating last night without problems and is hungry this am. He does not want to urinate "because I know it is gonna hurt." Rating the pain 10 out of 10 when he sits up and he does not think it is getting better, only helped by pain meds. Allergies and Home Medications Allergies Coded Allergies: azithromycin (Verified Allergy, Unknown, 06/06/17) Home Medications Cetirizine HCl 10 Mg Tablet, 10 MG PO DAILY, (Reported) Glucosa Jimenez 2Kcl/Chondroitin Jimenez 1 Each Capsule, 1 CAP PO BID, (Reported) Lactobacillus Acidophilus 1 Each Capsule, 1 CAP PO DAILY, (Reported) Multivitamin 1 Each Tablet, 1 TAB PO DAILY, (Reported) Testosterone Cypionate 200 Mg/1 Ml Vial, 200 MG PO UD, (Reported) Past Smmhtpk-Hyjpmo-Yqedxv Hx Patient Social History Alcohol Use: Occasionally Uses Recreational Drug Use: No Smoking Status: Former Smoker Former Smoker, Quit: Mar 04, 2005 Type Used: Cigarettes Recent Foreign Travel: No Contact w/Someone Who Travel: No Recent Infectious Disease Expo: No Recent Hopitalizations: No Physical Abuse Screen: No Sexual Abuse: No Seasonal Allergies Seasonal Allergies: Yes Surgeries History of Surgeries: Yes (L KNEE SCOPE, SINUS) Surgeries: Tonsillectomy Respiratory History of Respiratory Disorde: No Cardiovascular History of Cardiac Disorders: No Neurological History of Neurological Disord: No Reproductive System Hx Reproductive Disorders: No Sexually Transmitted Disease: No HIV/AIDS: No Genitourinary History of Genitourinary Disor: No Gastrointestinal History of Gastrointestinal Di: Yes Gastrointestinal Disorders: Chronic Constipation, Chronic Diarrhea, Irritable Bowel Musculoskeletal History of Musculoskeletal Dis: Yes (PLICA SYNDROME LEFT KNEE) Musculoskeletal Disorders: Arthritis Endocrine History of Endocrine Disorders: Yes (LOW TESTOSTERONE LEVELS) HEENT History of HEENT Disorders: No Loss of Vision: Bilateral Hearing Impairment: Denies Cancer History of Cancer: No Psychosocial History of Psychiatric Problem: Yes Behavioral Health Disorders: Anxiety Integumentary History of Skin or Integumenta: No Blood Transfusions History of Blood Disorders: No Adverse Reaction to a Blood Tr: No (N/A) Reviewed Nursing Assessment Reviewed/Agree w Nursing PMH: Yes Family Medical History Significant Family History: Other Conditions/Hx (father has h/o kidney stones) Family Medial History: Kidney disease Review of Systems-General Constitutional: chills, diaphoresis, weakness EENTM: No hearing loss, No blurred vision, No dental problems, No epistaxis, No throat pain, No throat swelling Respiratory: No cough, No dyspnea on exertion, No hemoptysis Cardiovascular: No chest pain, No edema, No palpitations Gastrointestinal: No dysphagia, No hematemesis, No melena, No nausea, No vomiting Genitourinary: No dysuria, No frequency, No hematuria Musculoskeletal: joint pain, joint swelling, muscle stiffness Skin: No change in color, No change in hair/nails Psychiatric/Neurological: Anxiety, Denies Paresthesia, Denies Seizure, Denies Tingling, Denies Weakness Other pt denies any abnormal bruising or bleeding and no swollen lymph nodes, denies heat or cold intolerance Physical Exam-General Problems Physical Exam Vital Signs Vital Sign - Last 12Hours 06/06/17 11:08 Temp 99.1 Pulse 86 Resp 18 B/P (MAP) 129/93 (105) Pulse Ox 98 O2 Delivery Room Air Capillary Refill : Less Than 3 SecondsLess Than 3 Seconds General Appearance: WD/WN, mild distress Eyes: Bilateral Eye PERRL, Bilateral Eye EOMI HEENT: pharynx normal, No scleral icterus (R), No scleral icterus (L), No pale conjunctivae (R), No pale conjunctivae (L) Neck: non-tender, full range of motion, supple, normal inspection Respiratory: chest non-tender, lungs clear, normal breath sounds, no respiratory distress, no accessory muscle use Cardiovascular: regular rate, rhythm, no edema, no murmur Gastrointestinal: soft, no organomegaly, no pulsatile mass, tenderness ( diffusely with palpation, but most is suprapubic), hernia (small UH) Rectal: deferred Back: no CVA tenderness, no vertebral tenderness Extremities: normal range of motion, non-tender, normal inspection, no pedal edema, no calf tenderness Neurologic/Psychiatric: paperhanger II-XII nml as tested, no motor/sensory deficits, alert, normal mood/affect, oriented x 3 Skin: normal color, warm/dry Lymphatic: no adenopathy (neck, axilla or groin) Data Review Labs Laboratory Tests 06/06/17 12:05: White Blood Count 12.8H, Red Blood Count 5.06, Hemoglobin 15.2, Hematocrit 42, Mean Corpuscular Volume 84, Mean Corpuscular Hemoglobin 30, Mean Corpuscular Hemoglobin Concent 36, Red Cell Distribution Width 12.8, Platelet Count 273, Mean Platelet Volume 10.0, Neutrophils (%) (Auto) 78H, Lymphocytes (%) (Auto) 13 , Monocytes (%) (Auto) 8, Eosinophils (%) (Auto) 1, Basophils (%) (Auto) 0, Neutrophils # (Auto) 9.9H, Lymphocytes # (Auto) 1.7, Monocytes # (Auto) 1.1H, Eosinophils # (Auto) 0.1, Basophils # (Auto) 0.0, Sodium Level 138, Potassium Level 3.9, Chloride Level 102, Carbon Dioxide Level 26, Anion Gap 10, Blood Urea Nitrogen 11, Creatinine 0.90, Estimat Glomerular Filtration Rate > 60, BUN/ Creatinine Ratio 12, Glucose Level 91, Calcium Level 9.2, Total Bilirubin 0.7, Aspartate Amino Transf (AST/SGOT) 15, Alanine Aminotransferase (ALT/SGPT) 14, Alkaline Phosphatase 72, C-Reactive Protein High Sensitivity 1.25H, Total Protein 7.5, Albumin 4.3, Lipase 21 06/06/17 12:08: Urine Color YELLOW, Urine Clarity CLEAR, Urine pH 7, Urine Specific Victor 1.010L, Urine Protein NEGATIVE, Urine Glucose (UA) NEGATIVE, Urine Ketones NEGATIVE, Urine Nitrite NEGATIVE, Urine Bilirubin NEGATIVE, Urine Urobilinogen NORMAL, Urine Leukocyte Esterase NEGATIVE, Urine RBC (Auto) NEGATIVE, Urine RBC NONE, Urine WBC NONE, Urine Squamous Epithelial Cells RARE, Urine Crystals NONE , Urine Bacteria NEGATIVE, Urine Casts NONE, Urine Mucus NEGATIVE, Urine Culture Indicated NO 06/07/17 05:35: White Blood Count 6.7, Red Blood Count 4.40, Hemoglobin 13.3, Hematocrit 37L, Mean Corpuscular Volume 85, Mean Corpuscular Hemoglobin 30, Mean Corpuscular Hemoglobin Concent 36, Red Cell Distribution Width 12.7, Platelet Count 243, Mean Platelet Volume 10.4, Neutrophils (%) (Auto) 61, Lymphocytes (%) (Auto) 25 , Monocytes (%) (Auto) 11, Eosinophils (%) (Auto) 3, Basophils (%) (Auto) 1, Neutrophils # (Auto) 4.1, Lymphocytes # (Auto) 1.7, Monocytes # (Auto) 0.7, Eosinophils # (Auto) 0.2, Basophils # (Auto) 0.0, Sodium Level 139, Potassium Level 4.0, Chloride Level 105, Carbon Dioxide Level 24, Anion Gap 10, Blood Urea Nitrogen 12, Creatinine 0.81, Estimat Glomerular Filtration Rate > 60, BUN/ Creatinine Ratio 15, Glucose Level 95, Calcium Level 8.0L, Total Bilirubin 0.4, Aspartate Amino Transf (AST/SGOT) 13, Alanine Aminotransferase (ALT/SGPT) 12, Alkaline Phosphatase 69, C-Reactive Protein High Sensitivity 2.63H, Total Protein 6.1L, Albumin 3.5 Assessment/Plan Assessment/Plan Assessment/Plan Abdominal pain - Suprapubic, suspected Epiploica Appendigitis on CT Leukocytosis - resolved Pt has an area of infection and minimal free fluid in pelvis; this is most likely epiploica appendigitis, there does not appear to be any diverticula. Bladder wall is thickened which could indicate a cystitis; but is more likely just thickened because the bladder is not completely distended. Pt's white count is now normal, but pain has basically not improved. I explained that what he has is an infarcted pieced of fat that comes off the large intestine. This should be self limiting and resolve on its own, but ABX will not get to this area because the blood supply is and there is no other way to get ABX intraperitoneally. One option is to go in and remove the piece of fat off the colon and suction out any infection; then he can most likely go home tomorrow or even today. The other option is to wait and see if it resolves, but this could happen by tomorrow or take longer and he may eventually need surgery. He is going to think about it. I did discuss the surgery: Laparoscopic Resection of the area, risks and complications not limited to pain, bleeding, infection, scar and damage to bowel. All questions answered to his satisfaction. Clinical Quality Measures DVT/VTE Risk/Contraindication: Risk Factor Score Per Nursin RFS Level Per Nursing on Admit: 1=Low/No VTE PPX LUL WALTERS DO Jun 07, 2017 10:41
[2017-06-07 12:00] VITALS: BP 121/69
[2017-06-07] MEDS ORDERED: LIDOCAINE/EPI 1%-1:200,000 (XYLOCAINE) 10 ML VIAL ONE (12:15)
--- NOTE | 2017-06-07 12:25 | History & Physicial ---
History of Present Illness History of Present Illness Reason for visit/HPI This is a 31 year old male who presented to the emergency room with complaint of periumbilical pain that then settled into the right lower quadrant and radiated into the right testicle. He did have associated nausea but no fever. He was found to have acute appendagitis. He initially deferred surgery and was admitted for IVF, pain control and observation but due to ongoing pain he has now agreed to surgery by Dr. Diaz. Date of Admission Jun 06, 2017 at 3:40 pm Date Seen by Provider: Jun 07, 2017 Time Seen by Provider: 12:20 I consulted on this patient on 06/07/17 12:20 Attending Physician Reji Bruce MD Admitting Physician Valentine Russ MD Consult Allergies and Home Medications Allergies Coded Allergies: azithromycin (Verified Allergy, Unknown, 06/06/17) Home Medications Cetirizine HCl 10 Mg Tablet, 10 MG PO DAILY, (Reported) Glucosa Jimenez 2Kcl/Chondroitin Jimenez 1 Each Capsule, 1 CAP PO BID, (Reported) Lactobacillus Acidophilus 1 Each Capsule, 1 CAP PO DAILY, (Reported) Multivitamin 1 Each Tablet, 1 TAB PO DAILY, (Reported) Testosterone Cypionate 200 Mg/1 Ml Vial, 200 MG PO UD, (Reported) Past Ruohbdj-Rhexwn-Yfqmbx Hx Patient Social History Alcohol Use: Occasionally Uses Alcohol Beverage of Choice: Beer Recreational Drug Use: No Smoking Status: Former Smoker Former Smoker, Quit: Mar 04, 2005 Type Used: Cigarettes Physical Abuse Screen: No Sexual Abuse: No Recent Foreign Travel: No Contact w/other who traveled: No Recent Hopitalizations: No Recent Infectious Disease Expo: No Seasonal Allergies Seasonal Allergies: Yes Surgeries Yes (L KNEE SCOPE, SINUS) Tonsillectomy Respiratory No Cardiovascular No Neurological No Reproductive System Hx Reproductive Disorders: No Sexually Transmitted Disease: No HIV/AIDS: No Genitourinary No Gastrointestinal Yes Chronic Constipation, Chronic Diarrhea, Irritable Bowel Musculoskeletal Yes (PLICA SYNDROME LEFT KNEE) Arthritis Endocrine History of Endocrine Disorders: Yes (LOW TESTOSTERONE LEVELS) HEENT History of HEENT Disorders: No Loss of Vision: Bilateral Hearing Impairment: Denies Cancer No Psychosocial History of Psychiatric Problem: Yes Behavioral Health Disorders: Anxiety Integumentary History of Skin or Integumenta: No Blood Transfusions History of Blood Disorders: No Adverse Reaction to a Blood Tr: No (N/A) Reviewed Nursing Assessment Reviewed/Agree w Nursing PMH: Yes Family Medical History Significant Family History: Other Conditions/Hx (father has h/o kidney stones) Family Hx: Kidney disease Constitutional: No no symptoms reported, No see HPI, No chills, No diaphoresis , No dizziness, No fever, No malaise, No weakness, No weight gain, No weight loss, No other EENTM: No see HPI, No no symptoms reported, No ear discharge, No hearing loss, No ear pain, No blurred vision, No double vision, No eye pain, No tearing, No vision loss, No dental problems, No hoarseness, No mouth pain, No mouth swelling , No epistaxis, No nose congestion, No nose pain, No throat pain, No throat swelling, No other Respiratory: No no symptoms reported, No see HPI, No cough, No dyspnea on exertion, No hemoptysis, No orthopnea, No phlegm, No short of breath, No stridor , No wheezing, No other Cardiovascular: No no symptoms reported, No see HPI, No chest pain, No edema, No Hx of Intervention, No palpitations, No syncope, No vascular heart diseas, No other Gastrointestinal: RLQ, nausea Genitourinary: other (right testicle pain) Musculoskeletal: No no symptoms reported, No see HPI, No back pain, No gout, No joint pain, No joint swelling, No muscle pain, No muscle stiffness, No muscle cramps, No muscle twitching, No muscle weakness, No neck pain, No other Skin: No no symptoms reported, No see HPI, No change in color, No change in hair/nails, No dryness, No hx of skin cancer, No lesions, No lumps, No pruritus , No rash, No other Psychiatric/Neurological: Denies No Symptoms Reported, Denies See HPI, Denies Anxiety, Denies Depressed, Denies Emotional Problems, Denies Headache, Denies Numbness, Denies Paresthesia, Denies Pre-Existing Deficit, Denies Seizure, Denies Tingling, Denies Tremors, Denies Weakness, Denies Other Physical Exam Vital Signs Vital Sign - Last 12Hours 06/06/17 11:08 Temp 99.1 Pulse 86 Resp 18 B/P (MAP) 129/93 (105) Pulse Ox 98 O2 Delivery Room Air Capillary Refill : Less Than 3 SecondsLess Than 3 Seconds General Appearance: No Apparent Distress HEENT: Normal ENT Inspection Neck: Supple Respiratory: Lungs Clear Cardiovascular: Regular Rate, Rhythm Gastrointestinal: Normal Bowel Sounds, Soft, Tenderness (suprapubic and RLQ with guarding and rebound) Rectal: Deferred Extremity: Non Tender, No Calf Tenderness, No Pedal Edema Neurologic/Psychiatric: Alert, Oriented x3 Skin: Normal Color, Warm/Dry Lymphatic: No Adenopathy Comments Laboratory Tests 06/07/17 05:35: White Blood Count 6.7, Red Blood Count 4.40, Hemoglobin 13.3, Hematocrit 37L, Mean Corpuscular Volume 85, Mean Corpuscular Hemoglobin 30, Mean Corpuscular Hemoglobin Concent 36, Red Cell Distribution Width 12.7, Platelet Count 243, Mean Platelet Volume 10.4, Neutrophils (%) (Auto) 61, Lymphocytes (%) (Auto) 25 , Monocytes (%) (Auto) 11, Eosinophils (%) (Auto) 3, Basophils (%) (Auto) 1, Neutrophils # (Auto) 4.1, Lymphocytes # (Auto) 1.7, Monocytes # (Auto) 0.7, Eosinophils # (Auto) 0.2, Basophils # (Auto) 0.0, Sodium Level 139, Potassium Level 4.0, Chloride Level 105, Carbon Dioxide Level 24, Anion Gap 10, Blood Urea Nitrogen 12, Creatinine 0.81, Estimat Glomerular Filtration Rate > 60, BUN/ Creatinine Ratio 15, Glucose Level 95, Calcium Level 8.0L, Total Bilirubin 0.4, Aspartate Amino Transf (AST/SGOT) 13, Alanine Aminotransferase (ALT/SGPT) 12, Alkaline Phosphatase 69, C-Reactive Protein High Sensitivity 2.63H, Total Protein 6.1L, Albumin 3.5 Assessment/Plan Assessment and Plan 1. Acute Appendigitis--to surgery by Dr. Diaz Problems: Clinical Quality Measures DVT/VTE Risk/Contraindication: Risk Factor Score Per Nursin RFS Level Per Nursing on Admit: 1=Low/No VTE PPX SARAH MONTOYA DO Jun 07, 2017 12:25 pm
[2017-06-07] MEDS ORDERED: LACTATED RINGERS 1,000 ML IV PRN (12:41)
[2017-06-07] MEDS ORDERED: ONDANSETRON 4 MG/2 ML (SDV) Z0FRAN ONE (12:58)
[2017-06-07] MEDS ORDERED: LIDOCAINE PF 2% 5 ML (XYLOCAINE) VIAL ONE (12:58)
[2017-06-07] MEDS ORDERED: ROCURONIUM 50 MG/5 ML (ZEMURON) VIAL IV ONE (12:58)
[2017-06-07] MEDS ORDERED: fentaNYL INJECTION 100 MCG/2 ML AMP ONE (12:58)
[2017-06-07] MEDS ORDERED: proPOfol 200 MG/20 ML (DIPRIVAN) VIAL IV ONE (12:58)
[2017-06-07] MEDS ORDERED: MIDAZOLAM 2 MG/2 ML (VERSED) VIAL ONE (12:59)
[2017-06-07] MEDS ORDERED: SEVOFLURANE (ULTANE) 15 ML INHAL SOLN ONE ×4 (13:02→13:57)
[2017-06-07] MEDS ORDERED: morphine INJ 10 MG/ML 1ML (SYR OR VIAL) ONE (13:41)
[2017-06-07] MEDS ORDERED: NEOSTIGMINE (BLOXIVERZ ) 1 MG/1ML 10 ML VIAL ONE (13:57)
[2017-06-07] MEDS ORDERED: GLYCOPYRROLATE 0.2 MG/ML (ROBINUL) 2 ML VIAL ONE (13:57)
--- NOTE | 2017-06-07 14:01 | Progress Note-Post Operative ---
Post-Operative Progess Note Surgeon (s)/Biologist (s) Surgeon LUL WALTERS DO Biologist: Ck Pre-Operative Diagnosis Abd pain, possible epiploica apendigitis Post-Operative Diagnosis Necrotic mass on sigmoid colon, probable epiploica Procedure & Operative Findings Date of Procedure 06/07/17 Procedure Performed/Findings Lap excision of intraperitoneal mass, pending pathology Anesthesia Type GET Estimated Blood Loss Estimated blood loss (mL): scant Specimens/Packing Specimens Removed necrotic mass and tissue LUL WALTERS DO Jun 07, 2017 14:01
[2017-06-07] MEDS ORDERED: ACHD5005 PO (14:02)
--- NOTE | 2017-06-07 14:06 | Discharge Inst-Surgical ---
Discharge Inst-Surgical Depart Medication/Instructions New, Converted or Re-Newed RX: RX Given to Pt/Family Patient Instructions Follow up Appt: Make appointment for 1 week. [phone] Instructions: No lifting greater than 10 pounds. No strenuous activity. May shower in 24 hours, no tub bath or soaking. Use incentive spirometer at home as directed. No Smoking Skin/Wound Care: May remove bandages. You need to leave the white strips over incision on they will fall off on their own. Symptoms to Report: Appetite Changes, Extremity Discoloration, Numbness/Tingling, Swelling Increased , Bleeding Excessive, Eyesight Changes, Pain Increased, Urine Color Change, Constipation(Persistent), Fever over 101 degree F, Pain/Pressure in chest, Urinating Difficulty, Cough Up/Vomit Blood, Heart Beat Irreg/Pounding, Pain/ Pressure in jaw, Cramps in feet or legs, Lightheadedness, Pain/Pressure in shoulder, Diarrhea(Persistent), Memory Changes Suddenly, Questions/Concerns, Weight gain consecutive days, Dizziness/Fainting, Nausea/Vomiting, Shortness of Breath, Weight gain over 2 pounds If questions or concerns contact your physician Or seek help at emergency department. Activity Activity Instructions: Avoid Pulling & Pushing, Avoid Stress to Incision Driving Instructions: No Driving/Refer to Dr. Reilly Discharge Diet: No Restrictions Diet After 24 Hours: Clear Liquid if Nauseous If Any Problems/Questions/Issu: Contact Your Physician, Go to Emergency Room Skin/Wound Care Infection Signs and Symptoms: Increased Redness, Foul Odor of Wound, Increased Drainage, Skin Itchy or Has a Rash, Increased Swelling, Temperature Above 101 F Wound Care Comment: Heating pad for neck or shoulder pain tonight. Bathing Instructions: Shower Stitches/Dmitry/Dermabond Dis: Dermabond Ice Pack: Ice On and Off Site LUL WALTERS DO Jun 07, 2017 14:06
[2017-06-07] MEDS ORDERED: MEPERIDINE (DEMEROL) INJ 50 MG/ML ONE (14:15)
[2017-06-07] MEDS ORDERED: HYDROmorphone (DILAUDID) 2 MG/ML VIAL IVP PRN (14:30)
[2017-06-07] MEDS ORDERED: ONDANSETRON 4 MG/2 ML (SDV) Z0FRAN IVP PRN (14:30)
[2017-06-07] MEDS ORDERED: morphine INJ 10 MG/ML 1ML (SYR OR VIAL) IVP PRN (14:30)
[2017-06-07] MEDS ORDERED: MEPERIDINE (DEMEROL) INJ 50 MG/ML IVP PRN (14:30)
[2017-06-07] MEDS ORDERED: PROMETHAZINE INJ 25 MG/ML (PHENERGAN) AMP IVP PRN (14:30)
[2017-06-07 15:08] VITALS: BP 128/66
[2017-06-07 15:25] VITALS: BP 118/68
--- NOTE | 2017-06-08 01:18 | OPERATIVE REPORT ---
DATE OF SERVICE: PREOPERATIVE DIAGNOSES: Abdominal pain, possible epiploic appendagitis. POSTOPERATIVE DIAGNOSES: Abdominal pain, necrotic mass in intraperitoneum, possible necrotic epiploica. PROCEDURE: Laparoscopic excision of intraperitoneal mass. SURGEON: Mio Diaz DO. TREE PLANTER: Milton Stover DO. ANESTHESIA: General endotracheal tube. SPECIMEN: Mass off of the sigmoid colon and intraperitoneal mass, pending pathology. BLOOD LOSS: Scant. FLUIDS: Per anesthesia. POSTOPERATIVE CONDITION: Stable. INDICATION FOR PROCEDURE: The patient is a 31-year-old male, who came in with abdominal pain, elevated white count and a suspected epiploic appendagitis. He was admitted, IV fluids, IV antibiotics, pain did not get better and the patient elected to go to the OR to remove this mass and area of infection. FINDINGS: The patient had an area of black what looked like necrotic tissue. Sigmoid colon was almost in a hairpin turn and attached to itself with inflammation because of this mass. He also has a small umbilical hernia. No other obvious pathology. PROCEDURE NOTE: After informed consent was obtained, the patient was brought to the operating room, placed on table in supine position. He was sterilely prepped and draped in normal fashion. Local lidocaine was used to infiltrate the skin above the umbilicus. I then made an incision with #11 blade, carried down through the skin into the subcutaneous tissue, then deepened down the subcutaneous tissue with Bovie electrocautery down to the fascia. Fascia was then incised with Bovie electrocautery and bluntly entered the abdomen, swept the finger around, placed 0 Vicryl [id number] suture, then placed an 11 mm trocar port under direct visualization, created pneumoperitoneum and then placed 2 more ports in a normal fashion using local lidocaine, 11 blade for stab incision and the VersaStep system, all done under direct visualization. One was lateral, but at the same height of the umbilicus and the one was about 8 cm lower, also out laterally in the abdominal wall. The patient was then placed in Trendelenburg. The intestine was stuck down in the pelvis. The peritoneum over the bladder looked okay, but this was right where it was stuck. I carefully took this small adhesion off using a little bit of blunt dissection. There was some red what looked like bloody peritoneal fluid, suctioned this out, able to then see a black necrotic area. The sigmoid colon was turned on itself, had come down into the pelvis and then looped up and then came back down and portion of this was attached to itself, able to separate some of it with blunt dissection and then able to grasp this necrotic area and inflammatory area and what looked like this necrotic piece and clamped the LigaSure, coagulated and then cut, this in a stepwise fashion, came across the intestine, trying to stay away from the intestine so as not to damage it to remove this necrotic mass. Once it was completely removed off the colon, then able to switch to a 5 mm camera, placed a bag in the abdomen, placed the pieces of necrotic tissue into the bag and then removed this through the supraumbilical incision. Placed the port back in, copiously irrigated the area with normal saline, suctioned this out, took pictures of the intestine, both sides of the sigmoid colon looked good. There was no damage from the LigaSure and also noted the appendix, which looked normal, took a picture of this, suctioned out all the fluid and then placed the patient back down in supine position, removed all ports under direct visualization and allowed the pneumoperitoneum to escape. Closed the supraumbilical incision with the 0 Vicryl suture, a [id number] suture previously placed. Copiously irrigated all incisions with normal saline and then closed the two small 5 mm incisions with a single interrupted 4-0 undyed Monocryl subcuticular stitch. Closed the supraumbilical incision with three interrupted 4-0 undyed Monocryl subcuticular stitches. Area was cleaned and dried and Dermabond placed and then Band-Aids. The patient was then transferred to recovery room in stable condition. Sponge, instrument and needle count correct at the end of the case. Dr. Stover assisted in this case. He helped to open and then he closed the incision. He also helped to identify anatomy and ran the camera. Job ID: [id number] DocumentID: [id number] Dictated Date: 06/07/2017 14:40:05 Manager [employer] Date: 06/08/2017 01:18:18 Dictated By: MIO DIAZ DO
== END 2017-06-07 18:11 | disposition home or self-care (01) ==
LOC: EDUNIT# 10:40 → ER 10:41 → 4TH 15:40 → UNDOADMOB 15:40 → 4TH 16:45 → SDC 16:45 → 4TH 16:45 → UNDODISOB 06-07 18:11 → SDC 06-07 18:11
PROVIDERS: ATTEND Family Medicine
DX: K63.89 Other specified diseases of intestine (principal); Q43.8 Other specified congenital malformations of intestine
CPT/HCPCS: 36415; 74177; 80053; 81000; 83690; 85025; 86141; 87081; 96361; 96365; 96375; G0378

== ENCOUNTER 2018-03-09 07:25 | Outpatient (RCR) | payer OTHER ==
[~2018-03-09 07:25] MED LIST changes: +ACHD5005 PO; +GLUC1CAP37 PO; +MULT-974 PO; +TEST200V21 PO
[2018-03-09 07:36] LABS: HEMOGLOBIN 15.6 G/DL (13.3-17.7); MEAN PLATELET VOLUME 9.8 FL (7.4-10.4); RED CELL DISTRIBUTION WIDTH 12.9 % (10.0-14.5); WHITE BLOOD COUNT 5.9 10^3/uL (4.3-11.0)
== END 2018-06-07 | disposition home or self-care (01) ==
LOC: LAB 07:25 → EDSTATUS 07:27
PROVIDERS: ATTEND Nurse Practitioner Family
DX: Z00.00 Encounter for general adult medical examination without abnormal findings (principal); E29.1 Testicular hypofunction
CPT/HCPCS: 36415; 84402; 84403; 85027

== ENCOUNTER → 2019-05-03 | Outpatient (CLI) | payer SELFPAY ==
--- NOTE | 2019-05-03 11:38 | Diagnostic Imaging Report ---
INDICATION: Neck pain with radiation to both arms with numbness. TECHNIQUE: AP, lateral, and swimmer's imaging of the thoracic spine. CORRELATION STUDY: None. FINDINGS: Minimal leftward curvature of the superior thoracic spine with slight rotation. Alignment is otherwise relatively anatomic. Thoracic vertebral body heights are maintained apart from minimal wedging inferiorly. Mild multilevel areas of disc space narrowing. Mild endplate lipping present. IMPRESSION: No radiographic evidence for acute abnormality of the thoracic spine. Mild degenerative changes. Dictated by: Dictated on workstation # [id number]
--- NOTE | 2019-05-03 11:48 | Diagnostic Imaging Report ---
INDICATION: Neck pain with radiation to the arms, numbness. TECHNIQUE: AP, lateral and odontoid views cervical spine. CORRELATION STUDY: None. FINDINGS: There is rather prominent reversal of the normal cervical lordosis. There is slight asymmetric wedging and loss of height, particularly at the C5 and C6 vertebral bodies. Various degrees of disc space narrowing, most pronounced at C4-C5, C5-C6, and C6-C7 levels. Prevertebral soft tissues are unremarkable. The odontoid is largely obscured. Lateral masses of C1-C2 are unremarkable. IMPRESSION: 1. Negative for acute findings of the cervical spine. 2. Rather prominent cervical spondylosis, most severe at the C4-C5, C5-C6, and C6-C7 levels with asymmetric disc space narrowing and endplate osteophyte formation. Dictated by: Dictated on workstation # [id number]
== END ==
LOC: RAD 10:38
PROVIDERS: ATTEND Nurse Practitioner Family
DX: M47.812 Spondylosis without myelopathy or radiculopathy, cervical region (principal); M25.78 Osteophyte, vertebrae; M50.321 Other cervical disc degeneration at C4-C5 level; M47.814 Spondylosis without myelopathy or radiculopathy, thoracic region
CPT/HCPCS: 72040; 72072

== ENCOUNTER → 2019-06-07 | Outpatient (CLI) | payer OTHER ==
--- NOTE | 2019-06-07 09:48 | Diagnostic Imaging Report ---
PROCEDURE: MR imaging cervical spine without contrast. TECHNIQUE: Multiplanar, multisequence MR imaging of the cervical spine was performed without contrast. DATE: June 07, 2019. COMPARISON: Cervical spine radiographs May 03, 2019. INDICATION: 33-year-old male, neck pain. FINDINGS: There is a reversal of the normal cervical lordosis. There is no evidence of a diffuse marrow infiltrating or replacing process. There is no identified focal concerning bone lesion. There is no identified abnormal signal in the cervical spinal cord. The cervical disc heights are fairly well preserved. C2-C3: There is no disc bulge. The uncovertebral and facet joints are unremarkable. There is no foraminal narrowing. There is no spinal canal stenosis. C3-C4: There is no disc bulge. The uncovertebral and facet joints are unremarkable. There is no foraminal narrowing. There is no spinal canal stenosis. C4-C5: There is a left paracentral posterior disc/osteophyte complex. The uncovertebral and facet joints are unremarkable. There is no foraminal narrowing. There is mild spinal canal stenosis. C5-C6: There is a posterior disc/osteophyte complex. The uncovertebral and facet joints are unremarkable. There is mild right foraminal narrowing. There is severe spinal canal stenosis. There is cord compression without current abnormal cord signal. C6-C7: There is a large posterior disc/osteophyte complex. There are mild right uncovertebral degenerative changes. There is moderate to severe right foraminal narrowing. There is severe spinal canal stenosis with prominent cord compression. There is no current abnormal cord signal. C7-T1: There is no disc bulge. The uncovertebral and facet joints are unremarkable. There is no foraminal narrowing. There is no spinal canal stenosis. IMPRESSION: 1. Very large posterior disc/osteophyte complex at C6-C7 with mild right uncovertebral degenerative changes causing severe spinal stenosis with very prominent cord compression and no current abnormal cord signal. There is moderate to severe right foraminal narrowing at this level. 2. Posterior disc/osteophyte complex at C5-C6 with cord compression and no current abnormal cord signal. There is severe spinal stenosis at this level and mild right foraminal narrowing. 3. Mild spinal stenosis at C4-C5 relating to a left paracentral posterior disc/osteophyte complex. 4. Reversal of the normal cervical lordosis. CRITICAL FINDINGS The report was faxed/called to Angelique/sergeant of officers of [employer], by LIYA@9:50 AM. Dictated by: Dictated on workstation # [id number]
== END ==
LOC: RAD 07:53
PROVIDERS: ATTEND Physician Assistant
DX: M48.02 Spinal stenosis, cervical region (principal); M47.12 Other spondylosis with myelopathy, cervical region
CPT/HCPCS: 72141

== ENCOUNTER 2019-06-15 05:36 | Outpatient (CLI) | payer OTHER ==
[~2019-06-15] VITALS: Ht 177.8 cm; Wt 86.4 kg
[2019-06-15] MEDS ORDERED: CYCL5TAB PO (11:54)
== END 2019-06-15 13:27 | disposition home or self-care (01) ==
LOC: PREOP 05:36
PROVIDERS: ATTEND Orthopaedic Surgery Orthopaedic Surgery of the Spine
DX: Z01.818 Encounter for other preprocedural examination (principal)

== ENCOUNTER 2019-06-20 11:20 | Inpatient (IN) | payer OTHER ==
[~2019-06-20] VITALS: Ht 177.8 cm; Wt 86.4 kg
[2019-06-20] VITALS (11 sets, daily range): BP systolic 111–161; BP diastolic 68–109
[~2019-06-20 11:20] MED LIST changes: +CYCL5TAB PO
[2019-06-20] MEDS ORDERED: LACTATED RINGERS 1,000 ML IV PRN (11:58)
[2019-06-20] MEDS ORDERED: ceFAZolin 2 GM/50 ML NS 50 ML IV ONE (12:00)
[2019-06-20 12:14] LABS: BASOPHILS % (AUTO) 1 % (0-10); EOSINOPHILS # (AUTO) 0.1 10^3/uL (0.0-0.3); EOSINOPHILS % (AUTO) 1 % (0-10); HEMATOCRIT 45 % (40-54); HEMOGLOBIN 16.1 G/DL (13.3-17.7); LYMPHOCYTES # (AUTO) 1.8 X 10^3 (1.0-4.0); LYMPHOCYTES % (AUTO) 25 % (12-44); MEAN CORPUSCULAR HEMOGLOBIN 30 PG (25-34); MEAN CORPUSCULAR HGB CONC 36 G/DL (32-36); MEAN CORPUSCULAR VOLUME 83 FL (80-99); MEAN PLATELET VOLUME 10.2 FL (7.4-10.4); MONOCYTES # (AUTO) 0.5 X 10^3 (0.0-1.0); MONOCYTES % (AUTO) 7 % (0-12); NEUTROPHILS # (AUTO) 4.6 X 10^3 (1.8-7.8); NEUTROPHILS % (AUTO) 66 % (42-75); PLATELET COUNT 285 10^3/uL (130-400); RED CELL DISTRIBUTION WIDTH 13.1 % (10.0-14.5)
[2019-06-20] MEDS ORDERED: ceFAZolin 2 GM/50 ML NS 50 ML ONE (12:15)
[2019-06-20] MEDS ORDERED: GENTAMICIN 40 MG/ML 2 ML INJ SDV ONE (12:20)
[2019-06-20] MEDS ORDERED: CATHETER FLUSH 10 ML SYR IV PRN (12:30)
[2019-06-20] MEDS ORDERED: ONDANSETRON 4 MG/2 ML (SDV) Z0FRAN ONE ×2 (12:31→12:35)
[2019-06-20] MEDS ORDERED: LIDOCAINE PF 2% 5 ML (XYLOCAINE) VIAL ONE (12:31)
[2019-06-20] MEDS ORDERED: ROCURONIUM 10 MG/ML 5 ML SYRINGE IV ONE (12:31)
[2019-06-20] MEDS ORDERED: proPOfol 200 MG/20 ML (DIPRIVAN) VIAL IV ONE (12:31)
[2019-06-20] MEDS ORDERED: SUCCINYLCHOLINE INJ 100 MG/5 ML SYR ONE (12:31)
[2019-06-20] MEDS ORDERED: MIDAZOLAM 2 MG/2 ML (VERSED) VIAL ONE (12:32)
[2019-06-20] MEDS ORDERED: fentaNYL INJECTION 100 MCG/2 ML AMP ONE ×2 (12:32→13:40)
[2019-06-20] MEDS ORDERED: SCOPOLAMINE 1.5 MG (TRANSDERM-SCOP) PATCH ONE (12:35)
[2019-06-20] MEDS ORDERED: FAMOTIDINE 20MG/2ML IV (PEPCID) ONE (12:35)
[2019-06-20] MEDS ORDERED: ONDANSETRON 4 MG/2 ML (SDV) Z0FRAN IV ONE (12:45)
[2019-06-20] MEDS ORDERED: FAMOTIDINE 20MG/2ML IV (PEPCID) IV ONE (12:45)
[2019-06-20] MEDS ORDERED: SCOPOLAMINE 1.5 MG (TRANSDERM-SCOP) PATCH TOP ONE (12:45)
--- NOTE | 2019-06-20 13:06 | Progress Note-Pre Operative ---
Pre-Operative Progress Note H&P Reviewed The H&P was reviewed, patient examined and no changes noted. Time Seen by Provider: 13:06 Date H&P Reviewed: Jun 20, 2019 Time H&P Reviewed: 13:06 Pre-Operative Diagnosis: Cervcial Disc herniation and severe stenosis. CAROLEE GARLAND MD Jun 20, 2019 13:06
[2019-06-20] MEDS ORDERED: PROPOFOL INJECTION 100 ML IV ONE (14:37)
[2019-06-20] MEDS ORDERED: SEVOFLURANE (ULTANE) 15 ML INHAL SOLN ONE ×3 (14:37→14:58)
--- NOTE | 2019-06-20 15:25 | Progress Note-Post Operative ---
Post-Operative Progess Note Surgeon (s)/Welfare Specialist (s) Surgeon CAROLEE GARLAND MD Welfare Specialist: [facility] Pre-Operative Diagnosis Cervcial Disc herniation and severe stenosis. Post-Operative Diagnosis Same Procedure & Operative Findings Date of Procedure 06/20/19 Procedure Performed/Findings C5-7 ARTHROPLASTY Anesthesia Type GETA Estimated Blood Loss Estimated blood loss (mL): MINIMAL Specimens/Packing Specimens Removed NONE CAROLEE GARLAND MD Jun 20, 2019 15:25
[2019-06-20] MEDS ORDERED: morphine INJ 10 MG/ML 1ML (SYR OR VIAL) ONE (15:28)
--- NOTE | 2019-06-20 15:29 | Diagnostic Imaging Report ---
INDICATION: Intraoperative fluoroscopy. FINDINGS: 2 images were obtained. 39 seconds of fluoroscopy was utilized. This was done during interbody fusion at C5-C6 and C6-C7 by Dr. Guerrero. IMPRESSION: Intraoperative fluoroscopy as described. Dictated by: Dictated on workstation # [id number]
[2019-06-20] MEDS ORDERED: ACETAMINOPHEN 325 MG TABLET PO PRN (15:30)
[2019-06-20] MEDS ORDERED: HYDROmorphone 2 MG/ML VIAL (DILAUDID) IV ONE (15:30)
[2019-06-20] MEDS ORDERED: MILK OF MAGNESIA 400 MG/5 ML 30 ML UDC PO PRN (15:30)
[2019-06-20] MEDS ORDERED: DOCUSATE SODIUM 100 MG (COLACE) CAP PO PRN (15:30)
[2019-06-20] MEDS ORDERED: ONDANSETRON 4 MG (ZOFRAN) ORAL DISSOLVE TAB PO PRN (15:30)
[2019-06-20] MEDS ORDERED: morphine INJ 10 MG/ML 1ML (SYR OR VIAL) IVP PRN (15:30)
[2019-06-20] MEDS ORDERED: morphine INJ 10 MG/ML 1ML (SYR OR VIAL) IVP ONE (15:30)
[2019-06-20] MEDS ORDERED: ONDANSETRON 4 MG/2 ML (SDV) Z0FRAN IV PRN (15:30)
[2019-06-20] MEDS ORDERED: PROMETHAZINE 12.5 MG (PHENERGAN) SUPP PR PRN (15:30)
[2019-06-20] MEDS ORDERED: BISACODYL 10 MG SUPP (DULCOLAX) PR PRN (15:30)
[2019-06-20] MEDS ORDERED: MEPERIDINE (DEMEROL) INJ 50 MG/ML IVP ONE (15:30)
[2019-06-20] MEDS ORDERED: ONDANSETRON 4 MG/2 ML (SDV) Z0FRAN IVP PRN (15:30)
[2019-06-20] MEDS ORDERED: BISACODYL 5 MG (DULCOLAX) TABLET PO PRN (15:30)
[2019-06-20] MEDS ORDERED: PROMETHAZINE INJ 25 MG/ML (PHENERGAN) AMP IVP ONE (15:30)
[2019-06-20] MEDS ORDERED: PROMETHAZINE 25 MG (PHENERGAN) TAB PO PRN (15:30)
[2019-06-20] MEDS ORDERED: MEPERIDINE (DEMEROL) INJ 50 MG/ML ONE (15:46)
--- NOTE | 2019-06-20 16:40 | NUR ---
bedside report from [facility] nurse. patient alert but drowsy still coming off of anesthesia, vital signs stable, neck incision is dry and intact with an ice pack. family and patient have no other concerns at this time
--- NOTE | 2019-06-20 16:52 | NUR ---
KRISTOPHER JEFFERY III admitted to room 419, with an admitting diagnosis of post op cervical 5-7 arthroplasty, on 06/20/19 from PACU via bed, accompanied by family and staff.KRISTOPHER JEFFERY III introduced to surroundings, call light, bed controls, phone, TV, temperature control, lights, meal times, smoking policy, visitor policy, side rail policy, bathrooms and showers. Patient Rights given to patient in the handbook. KRISTOPHER JEFFERY III verbalizes understanding that [facility] is not responsible for the loss or damage to any personal effects or valuables that are kept in the patients posession during their hospitalization. KRISTOPHER JEFFERY III verbalizes understanding of Interdisciplinary Patient Education. Patient and/or family were informed about the Rapid Response Team and its purpose.
[2019-06-20] MEDS ORDERED: D5 LR IV SOLUTION 1,000 ML IV ONE (17:08)
[2019-06-20] MEDS: D5 LR IV SOLUTION 1,000 ML IV SCH (17:14)
--- NOTE | 2019-06-20 17:35 | NUR ---
patient and spouse asked this RN for something for anxiety. Dr Guerrero gave orders for Xanax 0.25-0.50 q6 PRN
[2019-06-20] MEDS ORDERED: ALPRAZolam 0.25 MG (XANAX) TAB PO PRN ×2 (17:45→18:00)
[2019-06-20] MEDS: FAMOTIDINE 20 MG (PEPCID) TABLET PO SCH (18:23)
[2019-06-20] MEDS: ceFAZolin INJECTION 1,000 MG in WATER (STERILE) FOR INJECTION 10 ML IV SCH (19:46)
--- NOTE | 2019-06-20 20:41 | OPERATIVE REPORT ---
DATE OF SERVICE: 06/20/2019 PREOPERATIVE DIAGNOSES: Cervical disk herniation, high-grade cervical stenosis, cervical myelopathy and cervical radiculopathy. POSTOPERATIVE DIAGNOSES: Cervical disk herniation, high-grade cervical stenosis, cervical myelopathy and cervical radiculopathy. PROCEDURE PERFORMED: 1. C5-C6 anterior cervical arthroplasty. 2. C6-C7 anterior cervical arthroplasty. DATE AND TIME OF SURGERY: Please see anesthesia record. IMPLANTS USED: [employer] Mobi-C implant. SURGEON: Carolee Guerrero MD QUALITY CONTROL TECH RAW MATERIALS: [facility] [employer] ROLE OF GENERATOR TECHNICIAN: Aid in retraction of the procedure, aid in implantation, instrumentation and wound closure. ANESTHESIA: General endotracheal. ESTIMATED BLOOD LOSS: Minimal. INTRAVENOUS FLUIDS: Please see anesthesia record. ANTIBIOTICS: Ancef. COMPLICATIONS: None. SPECIMENS: None. INDICATIONS FOR PROCEDURE: The patient is a 33-year-old male with severe neck and arm pain, myelopathy features, high-grade stenosis, cord compression, failed conservative therapy, desires operative treatment. NEUROMONITORING: Standard neuromonitoring Dr. Monreal reading SSEPS, EMGs, TOFs carried out continuously throughout the procedure stable. DESCRIPTION OF PROCEDURE: The patient was taken to preoperative holding area and brought back to the operative suite. After adequate induction of general anesthetic, preoperative antibiotics, placed supine on the OR table. Shoulder roll was placed, head extended, sterile prepped and draped to the anterior cervical spine. Standard left-sided Castro-Mahoney approach to neck was carried out without difficulty. Once the appropriate level was confirmed starting at C 5 to 6, Crowley pins were placed. Anterior diskectomy was performed. Disk decompression carried all the way down to the posterior longitudinal ligament was performed including bilateral foraminotomies. Disc space was prepared. Trial spacer was utilized. Appropriate sized [id number] Mob-C implant was impacted in position with great fit achieved. Position was assured. Neuromonitoring was stable. Procedure was then carried out at the C6-C7 level in a similar manner where a size 6 implant was placed at this level. Once both had been placed, hemostasis assured. Bipolar electrocautery, bone wax and FloSeal were used to aid in hemostasis. Hemostasis assured. Wound was copiously irrigated. Wound was closed in layers. The patient transferred to recovery room in stable condition having tolerated the procedure well. Job ID: [id number] DocumentID: [id number] Dictated Date: 06/20/2019 15:23:53 Mental Health Specialist Date: 06/20/2019 20:40:07 Dictated By: CAROLEE GUERRERO MD MTDD
[2019-06-20] MEDS ORDERED: SENNOSIDES 8.6 MG (SENOKOT) TAB PO SCH (21:00)
[2019-06-20] MEDS: HYDROcodone/APAP 5 MG/325 MG (LORTAB) TAB PO PRN (22:14)
[2019-06-21] VITALS: BP 125/81
[2019-06-21] MEDS: FAMOTIDINE 20 MG (PEPCID) TABLET PO SCH (03:46)
[2019-06-21] MEDS: ceFAZolin INJECTION 1,000 MG in WATER (STERILE) FOR INJECTION 10 ML IV SCH (03:47)
[2019-06-21 04:00] VITALS: BP 147/68
[2019-06-21] MEDS: D5 LR IV SOLUTION 1,000 ML IV SCH (06:17)
[2019-06-21] MEDS: HYDROcodone/APAP 5 MG/325 MG (LORTAB) TAB PO PRN (06:18)
--- NOTE | 2019-06-21 06:31 | Discharge Inst-Surgical ---
Discharge Inst-Surgical Reconcile Patient Problems Problems Reviewed?: Yes Depart Medication/Instructions New, Converted or Re-Newed RX: RX Given to Pt/Family Final Diagnosis: Cervical stenosis, radiculopathy Consults/Follow Up Goal/Follow Up Appt.: [address] Gallegos office Activity Activity as Tolerated: Yes Activity Instructions: Avoid Pulling & Pushing, Avoid Stress to Incision Do Not Lift Over _ Pounds: 8 Driving Instructions: No Driving for 2 Weeks Incentive Spirometry: Every 2 Hours While Awake Diet Discharge Diet: No Restrictions If Any Problems/Questions/Issu: Contact Your Physician Skin/Wound Care Infection Signs and Symptoms: Increased Redness Bathing Instructions: Shower Operative Area Clean and Dry: Keep Incision Clean/Dry Ice Pack: Ice On and Off Site L[facility]O [facility] Jun 21, 2019 06:31
[2019-06-21] MEDS ORDERED: ACHD5005 PO (06:35)
[2019-06-21] MEDS ORDERED: CYCL5TAB PO (06:35)
[2019-06-21] MEDS ORDERED: MULTIVIT W/MINERALS TAB (THERAGRAN M) PO SCH (07:00)
[2019-06-21 08:00] VITALS: BP 133/86
[2019-06-21 08:27] VITALS: BP 133/86
--- NOTE | 2019-06-21 08:42 | Diagnostic Imaging Report ---
INDICATION: Neck pain. EXAMINATION: Cervical spine. FINDINGS: AP and lateral views of the cervical spine show postop changes from cervical discectomy at C5-C6 and C6-C7. There is slight disc space narrowing at C4-C5. There is a reverse curvature of the upper cervical spine centered at C4-C5. IMPRESSION: Good alignment of the cervical spine following disc replacement at C5-C6 and C6-C7. There are degenerative changes noted at C4-C5. Dictated by: Dictated on workstation # [id number]
[2019-06-21] MEDS ORDERED: MILK OF MAGNESIA 400 MG/5 ML 30 ML UDC PO SCH (09:00)
[2019-06-21] MEDS ORDERED: LORATADINE (CLARITIN) 10 MG TAB PO SCH (09:00)
--- NOTE | 2019-06-21 11:54 | Anesthesia-General Post-Op ---
General Patient Condition Mental Status/LOC: Same as Preop Cardiovascular: Satisfactory Nausea/Vomiting: Absent Respiratory: Satisfactory Pain: Controlled Complications: Absent Post Op Complications Complications None Follow Up Care/Instructions Patient Instructions None needed. Anesthesia/Patient Condition Patient Condition Patient was seen this morning in post-op rounds and he was doing well, no complaints, stable vital signs, no apparent adverse anesthesia problems. He is currently already discharged to home. PAOLA WASHINGTON DO Jun 21, 2019 11:54
== END 2019-06-21 08:57 | disposition home or self-care (01) | DRG 518 ==
LOC: 4TH 11:20 → SURG 11:21 → EDSTATUS 13:00 → 4TH 16:40
PROVIDERS: ADMIT Orthopaedic Surgery Orthopaedic Surgery of the Spine; ATTEND Orthopaedic Surgery Orthopaedic Surgery of the Spine
PROC: 0RR30JZ Replacement of Cervical Vertebral Disc with Synthetic Substitute, Open Approach (ICD-10-PCS; principal; 2019-06-20 13:09)
DX: M48.02 Spinal stenosis, cervical region (principal); M50.022 Cervical disc disorder at C5-C6 level with myelopathy; M50.122 Cervical disc disorder at C5-C6 level with radiculopathy
CPT/HCPCS: 36415; 72040; 85025; 87081; 94664

== ENCOUNTER → 2020-05-09 | Outpatient (CLI) | payer OTHER ==
[~2020-05-09] MED LIST changes: -CETI10TA20 PO; +CETI10TA49 PO
[2020-05-09 08:41] LABS: HEMOGLOBIN 16.8 g/dL (13.3-17.7); MEAN PLATELET VOLUME 9.8 fL (9.0-12.2); WHITE BLOOD COUNT 6.5 10^3/uL (4.3-11.0)
[2020-05-09 09:04] LABS: ALANINE AMINOTRANSFERASE 24 U/L (0-55); ALBUMIN 4.4 GM/DL (3.2-4.5); ALKALINE PHOSPHATASE 57 U/L (40-136); BILIRUBIN,TOTAL 0.5 MG/DL (0.1-1.0); BUN/CREATININE RATIO 15; CALCIUM 8.9 MG/DL (8.5-10.1); CARBON DIOXIDE 26 MMOL/L (21-32); CHLORIDE 104 MMOL/L (98-107); CHOLESTEROL 180 MG/DL (< 200); CREATININE SERUM 0.92 MG/DL (0.60-1.30); GFR ESTIMATED > 60; GLUCOSE 105 MG/DL (70-105); HDL CHOLESTEROL 40 MG/DL (40-60); SODIUM 139 MMOL/L (135-145); TOTAL PROTEIN 7.5 GM/DL (6.4-8.2); TRIGLYCERIDES 89 MG/DL (<150); VLDL CHOLESTEROL 18 MG/DL (5-40)
== END ==
LOC: LAB 08:18
PROVIDERS: ATTEND Nurse Practitioner Family
DX: Z00.00 Encounter for general adult medical examination without abnormal findings (principal); E29.1 Testicular hypofunction
CPT/HCPCS: 36415; 80053; 80061; 84402; 84403; 84443; 85027

== ENCOUNTER → 2020-09-14 | Outpatient (CLI) | payer OTHER | LOC: LAB 11:41 | PROVIDERS: ATTEND Family Medicine | DX: E29.1 Testicular hypofunction (principal) | CPT/HCPCS: 36415; 84402; 84403 ==

== ENCOUNTER → 2021-03-24 | Outpatient (CLI) | payer OTHER ==
[2021-03-24 09:15] LABS: BASOPHILS % (AUTO) 1 % (0-10); EOSINOPHILS # (AUTO) 0.2 10^3/uL (0.0-0.3); EOSINOPHILS % (AUTO) 3 % (0-10); HEMATOCRIT 43 % (40-54); HEMOGLOBIN 15.3 g/dL (13.3-17.7); LYMPHOCYTES # (AUTO) 1.5 10^3/uL (1.0-4.0); LYMPHOCYTES % (AUTO) 27 % (12-44); MEAN CORPUSCULAR HEMOGLOBIN 31 pg (25-34); MEAN CORPUSCULAR HGB CONC 36 g/dL (32-36); MEAN CORPUSCULAR VOLUME 86 fL (80-99); MEAN PLATELET VOLUME 9.9 fL (9.0-12.2); MONOCYTES # (AUTO) 0.5 10^3/uL (0.0-1.0); MONOCYTES % (AUTO) 8 % (0-12); NEUTROPHILS # (AUTO) 3.4 10^3/uL (1.8-7.8); NEUTROPHILS % (AUTO) 60 % (42-75); PLATELET COUNT 298 10^3/uL (130-400); WHITE BLOOD COUNT 5.6 10^3/uL (4.3-11.0)
--- NOTE | 2021-03-24 09:47 | Diagnostic Imaging Report ---
CLINICAL INDICATIONS: Looking at discs in neck. No known injury. Patient has neck pain. EXAM: X-ray of the cervical spine, 3 views. COMPARISON: X-ray of the cervical spine dated 06/21/2019. FINDINGS: There is no interval acute cervical spine fracture or dislocation. There is stable reversal of the cervical lordosis which is centered at C4-C5 level. There are stable small anterior spurs at C4-C5 level and moderate disk space height loss which has slightly progressed. Again seen intervertebral disk prosthesis at the C5-C6 and C6-C7 levels which are stable position with no interval complications. It appears as though there is possible disk space loss at the C5-C6 prosthetic region versus angulation of the spine in this region. There is no prevertebral soft tissue swelling. IMPRESSION: 1: There is no acute fracture. There is stable reversal of cervical lordosis centered at C4-C5 level with slight progression of associated moderate degenerative disease at the C4-C5 level. 2: Again seen C5-C6 and C6-C7 intervertebral disk prosthesis. There is questionable loss of disk space height at C5-C6 disk space prosthesis region. CT scan of the cervical spine may help better evaluate. Otherwise, there is no evidence of complication. Dictated by: Dictated on workstation # [id number]
--- NOTE | 2021-03-24 09:48 | Diagnostic Imaging Report ---
INDICATION: Back pain. Comparison with 05/03/2019. FINDINGS: Thoracic spine shows good alignment. Body height is well maintained throughout. There is mild degenerative disc disease with mild lipping of the endplates anteriorly throughout the thoracic spine. Pedicles are intact. There are no acute changes. IMPRESSION: Mild degenerative thoracic disc disease with no significant overall change in appearance. Dictated by: Dictated on workstation # [id number]
[2021-03-24 09:59] LABS: ALBUMIN 4.3 GM/DL (3.2-4.5); BILIRUBIN,TOTAL 0.6 MG/DL (0.1-1.0); CALCIUM 9.1 MG/DL (8.5-10.1); CREATININE SERUM 0.82 MG/DL (0.60-1.30); POTASSIUM 3.9 MMOL/L (3.6-5.0); TOTAL PROTEIN 7.2 GM/DL (6.4-8.2)
== END ==
LOC: RAD 08:49
PROVIDERS: ATTEND Nurse Practitioner Family
DX: Z00.00 Encounter for general adult medical examination without abnormal findings (principal); M47.812 Spondylosis without myelopathy or radiculopathy, cervical region; M47.816 Spondylosis without myelopathy or radiculopathy, lumbar region; E29.1 Testicular hypofunction; Z96.698 Presence of other orthopedic joint implants
CPT/HCPCS: 36415; 72040; 72072; 80053; 80061; 84402; 84403; 84443; 85025

== ENCOUNTER → 2021-04-01 | Outpatient (CLI) | payer OTHER ==
--- NOTE | 2021-04-01 15:25 | Diagnostic Imaging Report ---
PROCEDURE: CT cervical spine without contrast. TECHNIQUE: Multiple contiguous axial images were obtained through the cervical spine without the use of intravenous contrast. Sagittal and coronal reformations were then performed. Auto Exposure Controls were utilized during the CT exam to meet ALARA standards for radiation dose reduction. INDICATION: Cervical spine. COMPARISON: There are no prior CT cervical spine examinations available for comparison. The MRI cervical spine exam of 06/07/2019 noted a very large posterior disc/osteophyte complex at C6-C7 resulting in severe central stenosis. There was also severe spinal stenosis at the C5-C6 level. The recent plain film examination of the cervical spine performed on 03/24/2021 failed to show any sign of an acute abnormality. There were intervertebral disc prostheses at the C5-C6 and C6-C7 levels. There was also questionable loss of disc space height at C5-C6. FINDINGS: On the reconstructed parasagittal images of this exam, the disc prostheses at C5-C6 and C6-C7 are again identified. The orthopedic hardware appears to be in good position. The artifact related to the orthopedic hardware does limit this evaluation for central stenosis at these two levels. There is no obvious stenosis identified. If further evaluation of the thecal sac and nerve roots is desired, however, then a repeat MRI exam should be obtained. As noted on the previous exam, there is also degenerative disc and bony disease at the C4-C5 level. There is a disc/osteophyte complex centrally at this level which narrows the AP diameter of the thecal sac to 7.7 mm as opposed to 8.7 mm on the prior study. There does not appear to be any significant neuroforaminal narrowing at this level. The remainder of the cervical spine is unremarkable for a high-grade central stenosis. There is no fracture or acute bony abnormality identified. As on the previous study, there is still reversal of the normal lordosis of the cervical spine. There is no sign of retropharyngeal edema. The thyroid gland is generally unremarkable. The lung apices are clear. There is partial opacification of the left maxillary antrum, consistent with sinusitis. IMPRESSION: 1. The disc prostheses at C5-C6 and C6-C7 seen previously appear to be in good position. The artifact related to the prostheses, however, does limit the evaluation of the thecal sac at these two levels. Additional considerations as above. 2. There is mild central stenosis at C4-C5 due to a combination of degenerative disc and bony disease. 3. The remainder of the cervical spine is unremarkable for spinal stenosis or nerve root encroachment. 4. There is no acute bony abnormality noted. 5. There is left maxillary sinusitis. Dictated by: Dictated on workstation # [id number]
== END ==
LOC: RAD 13:45
PROVIDERS: ATTEND Nurse Practitioner Family
DX: M48.02 Spinal stenosis, cervical region (principal); M47.812 Spondylosis without myelopathy or radiculopathy, cervical region; M50.321 Other cervical disc degeneration at C4-C5 level; J32.0 Chronic maxillary sinusitis; Z96.698 Presence of other orthopedic joint implants
CPT/HCPCS: 72125

== ENCOUNTER → 2021-04-18 | Outpatient (CLI) | payer OTHER ==
--- NOTE | 2021-04-18 09:19 | Diagnostic Imaging Report ---
PROCEDURE: MR imaging cervical spine without contrast. TECHNIQUE: Multiplanar, multisequence MR imaging of the cervical spine was performed without contrast. INDICATION: Prior cervical spine fusion. Chronic neck pain. COMPARISON: CT cervical spine without contrast 04/01/2021. FINDINGS: Stable alignment. Vertebral body heights are preserved. Bone marrow signal is unremarkable where seen. There are interbody fusions at C5-C7. Susceptibility artifact limits evaluation at these levels. No abnormal signal is seen in the cervical spinal cord. Visualized paravertebral soft tissues are unremarkable. C2-C3: Normal. C3-C4: Uncovertebral joint hypertrophy results in mild left neural foraminal narrowing. No spinal canal narrowing. C4-C5: Uncovertebral joint hypertrophy results in mild left neural foraminal narrowing. No spinal canal narrowing. C5-C6: This level is obscured by susceptibility artifact from the hardware. No convincing neural impingement. C6-C7: This level is obscured by artifact from hardware. No convincing neural impingement. C7-T1: Uncovertebral joint hypertrophy results in mild bilateral neural foraminal narrowing. No spinal canal narrowing. IMPRESSION: 1. Interbody fusions at C5-C6 and C6-C7. Stable alignment. 2. Scattered mild neural foraminal narrowing as above. No high-grade spinal canal stenosis is seen. Dictated by: Dictated on workstation # [id number]
--- NOTE | 2021-04-18 09:28 | Diagnostic Imaging Report ---
TECHNIQUE: Multiplanar and multisequence MRI of the thoracic spine is performed without contrast. REASON FOR EXAM: Chronic mid back pain. COMPARISON: 05/03/2019. FINDINGS: No acute fracture or dislocation is seen in the thoracic spine. Alignment is anatomic. No focal osseous lesions are seen. Vertebral body heights and disc spaces are well-maintained. The bone marrow signal is unremarkable. The intrinsic signal of the thoracic spinal cord is normal. No evidence of cord expansion. No epidural collections. No significant degenerative changes are seen in the thoracic spine. No high-grade spinal canal or foraminal stenosis. The paraspinal soft tissues are unremarkable. The included lungs are clear. IMPRESSION: 1. No acute fracture or dislocation is seen in the thoracic spine. 2. No significant degenerative changes in the thoracic spine. No high-grade spinal canal or foraminal stenosis. Dictated by: Dictated on workstation # [id number]
== END ==
LOC: RAD 08:00
PROVIDERS: ATTEND Physician Assistant
DX: M48.03 Spinal stenosis, cervicothoracic region (principal); M47.813 Spondylosis without myelopathy or radiculopathy, cervicothoracic region; Z98.1 Arthrodesis status
CPT/HCPCS: 72141; 72146

== ENCOUNTER 2021-07-28 16:12 | Outpatient (RCR) | payer OTHER | END 2021-07-31 | disposition home or self-care (01) | PROVIDERS: ATTEND Physician Assistant | DX: M54.2 Cervicalgia (principal); M54.6 Pain in thoracic spine; M54.50 Low back pain, unspecified ==

== ENCOUNTER 2021-08-20 16:11 | Outpatient (RCR) | payer OTHER | END 2021-08-30 | disposition home or self-care (01) | PROVIDERS: ATTEND Physician Assistant | DX: M54.2 Cervicalgia (principal); M54.6 Pain in thoracic spine; M54.50 Low back pain, unspecified ==

== ENCOUNTER → 2022-04-06 | Outpatient (CLI) | payer OTHER ==
[2022-04-06 09:05] LABS: BASOPHILS # (AUTO) 0.1 10^3/uL (0.0-0.1); BASOPHILS % (AUTO) 1 % (0-10); EOSINOPHILS # (AUTO) 0.2 10^3/uL (0.0-0.3); EOSINOPHILS % (AUTO) 3 % (0-10); HEMATOCRIT 44 % (40-54); HEMOGLOBIN 15.4 g/dL (13.3-17.7); LYMPHOCYTES # (AUTO) 1.6 10^3/uL (1.0-4.0); LYMPHOCYTES % (AUTO) 29 % (12-44); MEAN CORPUSCULAR HEMOGLOBIN 30 pg (25-34); MEAN CORPUSCULAR HGB CONC 35 g/dL (32-36); MEAN CORPUSCULAR VOLUME 85 fL (80-99); MEAN PLATELET VOLUME 9.9 fL (9.0-12.2); MONOCYTES # (AUTO) 0.4 10^3/uL (0.0-1.0); MONOCYTES % (AUTO) 8 % (0-12); NEUTROPHILS # (AUTO) 3.4 10^3/uL (1.8-7.8); NEUTROPHILS % (AUTO) 60 % (42-75); PLATELET COUNT 294 10^3/uL (130-400); WHITE BLOOD COUNT 5.7 10^3/uL (4.3-11.0)
[2022-04-06 09:28] LABS: ALBUMIN 4.4 GM/DL (3.2-4.5); BILIRUBIN,TOTAL 0.4 MG/DL (0.1-1.0); CALCIUM 9.3 MG/DL (8.5-10.1); CREATININE SERUM 0.94 MG/DL (0.60-1.30); POTASSIUM 3.8 MMOL/L (3.6-5.0); TOTAL PROTEIN 7.2 GM/DL (6.4-8.2)
== END ==
LOC: LAB 08:46
PROVIDERS: ATTEND Family Medicine
DX: Z00.00 Encounter for general adult medical examination without abnormal findings (principal); E29.1 Testicular hypofunction
CPT/HCPCS: 36415; 80053; 80061; 84402; 84403; 84443; 85025